=== PATIENT | female | born 1965 | race Caucasian/White ===

== ENCOUNTER 2024-07-23 17:40 | Inpatient (IN) | payer MEDICAID ==
[~2024-07-23] VITALS: Ht 162.6 cm; Wt 90.8 kg
--- NOTE | 2024-07-23 17:52 | ECG ---
[facility] Test Date: 2024-07-23 Test Time: 17:45:53 Pat Name: KEITH ESPINOZA Department: er Room: 0284T Gender: F Lab Nurse: gayatri : 1965 Requested By: EMERGENCY EMERGENCY Order Number: [id number] Reading MD: Reinier Rodriguez Measurements Intervals [place] Rate: 91 P: 49 OK: 150 QRS: 64 QRSD: 88 T: 48 QT: 360 QTc: 443 Interpretive Statements Sinus rhythm Electronically Signed On 07-27-2024 10:35:13 PST by Reinier Rodriguez Please click the below link to view image of tracing.
--- NOTE | 2024-07-23 18:01 | ED.PDOC ---
HPI Comments 59 y.o female with PMHx of CVA, diverticulitis, kidney stones, TBI, presents to the ED via EMS for a chief complaint of substernal chest pain radiating to her back associated with a headache that presented 2-3 days ago. Patient describes chest pain as a tightness sensation and head pain as a tingling sensation. Patient denies any SOB, cough, fever, chills. She does mention nausea, vomiting and chills last night but since has subsided. Time Seen by MD: 17:51 Primary Care Provider: UNSURE Reviewed Notes: Nurses Notes, Fancy Packer Notes, Medications, Allergies Allergies: Coded Allergies: Penicillins (Unverified Allergy, Unknown, 03/30/15) Information Source: Patient, Emergency Med Personnel Mode of Arrival: EMS Severity: Moderate Timing: Days Duration: Since onset Location: Substernal Radiation: Back Quality: Tightness Onset: At Rest Cardiac Risk Factors: HTN PE Risk Factors: None History of: None Modifying Factors: Nothing Associated Signs and Symptoms: Back Pain Past Medical History PAST MEDICAL HISTORY: CVA, HTN, Kidney Stones Past Medical History (Other): diverticulitis, TBI Surgical History (Other): kidney stone removal 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 History Family History Family History: Family hx of heart radha Social History Smoker: Non-Smoker Alcohol: Denies ETOH Use Drugs: Denies Drug Use Lives In: Home Constitutional: denies: chills, diaphoresis, fatigue, fever, malaise, sweats, weakness, others EENTM: denies: blurred vision, double vision, ear bleeding, ear discharge, ear drainage, ear pain, ear ringing, eye pain, eye redness, hearing loss, mouth pain, mouth swelling, nasal discharge, nose bleeding, nose congestion, nose pain, photophobia, tearing, throat pain, throat swelling, voice changes, others Respiratory: denies: cough, hemoptysis, orthopnea, SOB at rest, shortness of breath, SOB with excertion, stridor, wheezing, others Cardiovascular: reports: chest pain; denies: dizzy spells, diaphoresis, Dyspnea on exertion, edema, irregular heart beat, left arm pain, lightheadedness, palpitations, PND, syncope, others Gastrointestinal: denies: abdomen distended, abdominal pain, blood streaked bowels, constipated, diarrhea, dysphagia, difficulty swallowing, hematemesis, melena, nausea, poor appetite, poor fluid intake, rectal bleeding, rectal pain, vomiting, others Genitourinary: denies: abnormal vagina bleeding, burning, dyspareunia, dysuria, flank pain, frequency, hematuria, incontinence, pain, , vagina discharge, urgency, others Neurological: reports: headache; denies: dizziness, fainting, left sided numbness, left sided weakness, numbness, paresthesia, pre-existing deficit, right sided numbness, right sided weakness, seizure, speech problems, tingling, tremors, weakness, others Musculoskeletal: reports: back pain; denies: gout, joint pain, joint swelling, muscle pain, muscle stiffness, neck pain, others Integumetry: denies: bruises, change in color, change in hair/nails, dryness, laceration, lesions, lumps, rash, wounds, others Allergic/Immunocompromised: denies: Difficulty Healing, Frequent Infections, Hives, Itching, others Hematologic/Lymphatic: denies: anemia, blood clots, easy bleeding, easy bruising, swollen glands, others Endocrine: denies: excessive hunger, excessive sweating, excessive thirst, excessive urination, flushing, intolerance to cold, intolerance to heat, unexplained weight gain, unexplained weight loss, others Psychiatric: denies: anxiety, bipolar disorder, depression, hopeless, panic disorder, schizophrenia, sleepless, suicidal, others All Other Systems: Reviewed and Negative Physical Exam General Appearance: Moderate Distress HEENT: Normal ENT Inspection, Pharynx Normal, TMs Normal Neck: Full Range of Motion, Non-Tender, Normal, Normal Inspection Respiratory: Chest Non-Tender, Lungs Clear, No Accessory Muscle Use, No Respiratory Distress, Normal Breath Sounds Cardiovascular: No Edema, No JVD, No Murmur, No Gallop, Normal Peripheral Pulses, Regular Rate/Rhythm Breast Exam: Deferred Gastrointestinal: No Organomegaly, Non Tender, No Pulsatile Mass, Normal Bowel Sounds, Soft Genitalia: Deferred Pelvic: Deferred Rectal: Deferred Extremities: No calf tenderness, Normal capillary refill, Normal inspection, Normal range of motion, Non-tender, No pedal edema Musculoskeletal : Apperance: Normal Neurologic: Alert, manager ent II-XII nml as Tested, Motor Weakness, Normal Affect, Normal Mood, No Sensory Deficits Cerebellar Function: Normal Reflexes: Normal Skin: Dry, Normal Color, Warm Lymphatic: No Adenopathy EKG EKG : Pulse Rate (adult): 91 Cardiac Rhythm: NSR Was a procedure done? Was a procedure done?: No CP Differential Dx Differential Diagnosis: N/A Differential Diagnosis: N/A Differential Diagnosis: Angina, Chest Wall Pain, Cholelithiasis, Costochondritis, Esophageal reflux/spasm, Gastritis, Myocardial Infarction, Pericarditis X-Ray, Labs, Meds, VS Vital Signs Date Time Temp Pulse Resp B/P (MAP) Pulse Ox O2 Delivery O2 Flow Rate FiO2 07/23/24 19:02 91 07/23/24 18:01 91 07/23/24 17:45 91 07/23/24 17:45 98.5 94 14 177/109 (131) 95 Lab Test 07/23/24 18:55 07/23/24 17:55 Range/Units Troponin I High Sensitivity Pending 3 L </=34 ng/L White Blood Count 6.5 4.4-10.8 10^3/uL Red Blood Count 5.26 H 4.0-5.20 10^6/uL Hemoglobin 14.9 12.2-16.2 g/dL Hematocrit 44.7 36.0-46.0 % Mean Corpuscular Volume 85.1 80.0-100.0 fL Mean Corpuscular Hemoglobin 28.3 28.0-32.0 pg Mean Corpuscular Hemoglobin Concent 33.3 32.0-36.0 g/dL Red Cell Distribution Width 14.1 11.8-14.3 % Platelet Count 240 140-450 10^3/uL Mean Platelet Volume 6.8 L 6.9-10.8 fL Neutrophils (%) (Auto) 48.6 37.0-80.0 % Lymphocytes (%) (Auto) 38.7 10.0-50.0 % Monocytes (%) (Auto) 8.4 0.0-12.0 % Eosinophils (%) (Auto) 3.2 0.0-7.0 % Basophils (%) (Auto) 1.1 0.0-2.0 % Neutrophils # (Auto) 3.2 1.6-8.6 10 ^3/uL Lymphocytes # (Auto) 2.5 0.4-5.4 10 ^3/uL Monocytes # (Auto) 0.5 0-1.3 10 ^3/uL Eosinophils # (Auto) 0.2 0-0.8 10 ^3/uL Basophils # (Auto) 0.1 0-0.2 10 ^3/uL Nucleated Red Blood Cells 0.1 % Sodium Level 142 136-145 mmol/L Potassium Level 4.0 3.5-5.1 mmol/L Chloride Level 106 98-107 mmol/L Carbon Dioxide Level 26 20-31 mmol/L Anion Gap 10 5-15 Blood Urea Nitrogen 22 9-23 mg/dL Creatinine 1.04 H 0.550-1.02 mg/dL Glomerular Filtration Rate Calc 62 >90 mL/min BUN/Creatinine Ratio 21.2 H 10.0-20.0 Serum Glucose 114 H 74-106 mg/dL Calcium Level 10.1 8.7-10.4 mg/dL Magnesium Level 2.0 1.6-2.6 mg/dL The CBC and chemistry panel are within normal limits. The patient's 1st troponin level came back negative The chest x-ray is negative. The patient is being admitted to the hospitalist. The patient continues to have chest pain so the patient was being admitted this time. Images Reviewed?: Images reviewed and evaluated by me Time of 1ST Reevaluation: 17:56 Reevaluation 1ST: Unchanged Patient Education/Counseling: Diagnosis, Treatment, Prognosis Family Education/Counseling: No Family Present Departure 1 Departure Time of Disposition: 19:20 Impression: Primary Impression: Acute coronary syndrome Disposition: ADMITTED INPATIENT Admit to: [facility] Condition: Fair Critical Care Note Critical Care Time?: Yes (45 min-critical care time only) Stability Stability form required: Yes Unstable for transfer: Telemetry monitoring (Telemetry monitoring required), ED Physician Assesment (Clinical assesment) Heart Score Heart Score: Heart Score Response (Comments) Value History Moderate Suspicious 1 EKG Normal 0 Age 45-64 1 Risk Factors >3 or Hx ASHD 2 Troponin Normal limit 0 Total 4 I personally scribed for THO CRUZ MD ([email or web address]) on 07/23/24 at 18:01. E lectronically submitted by Brittany Ivan ([facility]). THO CRUZ MD Jul 23, 2024 18:01
[2024-07-23 18:22] LABS: Basophils # (auto) 0.1 10 ^3/uL (0-0.2); Basophils % (auto) 1.1 % (0.0-2.0); Eosinophils # (auto) 0.2 10 ^3/uL (0-0.8); Eosinophils % (auto) 3.2 % (0.0-7.0); Hematocrit 44.7 % (36.0-46.0); Hemoglobin 14.9 g/dL (12.2-16.2); Lymphocytes # (auto) 2.5 10 ^3/uL (0.4-5.4); Lymphocytes % (auto) 38.7 % (10.0-50.0); Mean Corpuscular Hemoglobin 28.3 pg (28.0-32.0); Mean Corpuscular Hgb Conc. 33.3 g/dL (32.0-36.0); Mean Corpuscular Volume 85.1 fL (80.0-100.0); Monocytes # (auto) 0.5 10 ^3/uL (0-1.3); Monocytes % (auto) 8.4 % (0.0-12.0); Neutrophils # (auto) 3.2 10 ^3/uL (1.6-8.6); Neutrophils % (auto) 48.6 % (37.0-80.0); Nucleated Red Blood Cells % 0.1 %; Platelet Count (auto) 240 10^3/uL (140-450); Red Blood Cells 5.26 10^6/uL (4.0-5.20); Red Cell Distribution Width 14.1 % (11.8-14.3); White Blood Cell 6.5 10^3/uL (4.4-10.8)
[2024-07-23 18:29] LABS: Chloride 106 mmol/L (98-107); Sodium 142 mmol/L (136-145)
[2024-07-23 18:30] LABS: Anion Gap 10 (5-15); Calcium 10.1 mg/dL (8.7-10.4); Carbon Dioxide 26 mmol/L (20-31)
[2024-07-23 18:35] LABS: BUN/Creatinine Ratio 21.2 (10.0-20.0); Blood Urea Nitrogen 22 mg/dL (9-23)
[2024-07-23 18:36] LABS: Glucose 114 mg/dL (74-106)
--- NOTE | 2024-07-23 18:47 | DVH ---
CHEST RADIOGRAPH Indication: cp Technique: Single frontal view of the chest was obtained COMPARISON: None FINDINGS: Lines and Tubes: None Lungs: Clear Pleura: No effusion. No pneumothorax. Cardiomediastinal contours: Unremarkable Bones: Unremarkable IMPRESSION: 1. No acute disease.
[2024-07-23 20:31] VITALS: PULSE 96; RESP 16; O2SAT 98
[2024-07-23] MEDS: ONDANSETRON HCL 4 MG/2 ML VIAL IV ONE (20:39)
[2024-07-23] MEDS: MORPHINE SULFATE 4 MG/ML SYR/VIAL IV ONE (20:39)
[2024-07-24] MEDS: MORPHINE SULFATE INJ 2 MG/ml SYRG IV ONE (06:11)
[2024-07-24] MEDS: ASPirin 81 mg TAB PO ONE (06:12)
[2024-07-24 06:47] LABS: Alkaline Phosphatase 111 U/L (46-116); Anion Gap 8 (5-15); BUN/Creatinine Ratio 20.9 (10.0-20.0); Calcium 10.1 mg/dL (8.7-10.4); Carbon Dioxide 27 mmol/L (20-31); Chloride 105 mmol/L (98-107); Potassium 4.4 mmol/L (3.5-5.1); Sodium 140 mmol/L (136-145); Total Protein 7.5 g/dL (5.7-8.2)
[2024-07-24 07:04] LABS: Alanine Aminotransferase 1220 U/L (7-40); Albumin 4.9 g/dL (3.2-4.8); Aspartate Aminotransferase 2063 U/L (13-40); Bilirubin, Total 1.2 mg/dL (0.2-1.0); Blood Urea Nitrogen 28 mg/dL (9-23); Glucose 113 mg/dL (74-106)
[2024-07-24] MEDS ORDERED: HYDR25TA87 (10:39)
[2024-07-24] MEDS ORDERED: LISI20TA56 PO (10:39)
[2024-07-24] MEDS ORDERED: CARV6.2551 PO (10:39)
[2024-07-24] MEDS ORDERED: DOCUSATE SOD 100 MG CAP PO PRN (10:45)
[2024-07-24] MEDS ORDERED: NITROGLYCERIN 0.4 MG SL TAB SL PRN (10:45)
[2024-07-24] MEDS ORDERED: ACETAMINOPHEN 325 MG TAB PO PRN (10:45)
--- NOTE | 2024-07-24 10:46 | DVHHP2 ---
History of Present Illness Reason for Visit: Chest pain History of Present Illness Iliana Moeller is a 59-year-old female with past medical history of hypertension, CVA, TBI, diverticulosis, and kidney stones, who came in due to chest pain. Patient states that she has been experiencing intermittent chest pain for the last couple of months. She states it worsened yesterday prompting her to come to the ER. Patient states that when her chest pain worsens it radiates to her back and causes her jaw to go numb. Patient also states that the pain is at rest and with activity. 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) GI: Diverticulosis Renal/: Other (H/O kidney stones) Past Surgical History: Appendectomy, Cholecystectomy, Other (Kidney stone removal, colon surgery for diverticulitis), Tubal Ligation Smoke: No ALCOHOL: none Drugs: None Lives: with Family Domestic Violence: Neg Review of Systems Constitutional: No: Fever, Chills, Sweats, Weakness, Malaise, Other Eyes: No: Pain, Vision change, Conjunctivae inflammation, Eyelid inflammation, Other, Redness ENT: No: Ear pain, Ear discharge, Nose pain, Nose discharge, Nose congestion, Mouth pain, Mouth swelling, Throat pain, Throat swelling, Other Respiratory: No: Cough, Dry, Shortness of breath, SOB with excertion, Wheezing, Hemoptysis, Pleuritic Pain, Sputum, Wheezing, Other Cardiovascular: Chest Pain, Palpitations; No: Orthopnea, Paroxysmal Noc. Dyspnea, Edema, Lt Headedness, Other Gastrointestinal: No: Nausea, Vomiting, Abdominal Pain, Diarrhea, Constipation, Melena, Hematochezia, Other Genitourinary: No Dysuria, No Frequency, No Incontinence, No Hematuria, No Retention, No Other Musculoskeletal: No: other, neck pain, shoulder pain, arm pain, back pain, hand pain, leg pain, foot pain Skin: No: Rash, Lesions, Jaundice, Bruising, Other Neurological: No: Weakness, Numbness, Incoordination, Change in speech, Confusion, Seizures, Other Allergies: Coded Allergies: Penicillins (Unverified Allergy, Unknown, 03/30/15) Medications Current Medications Medications Dose Ordered Sig/Tre Route Start Time Stop Time Status Last Admin Dose Admin Sodium Chloride 10 ml Q8HR IV 07/24/24 14:00 UNV Acetaminophen/ Hydrocodone Bitart 1 tab Q4HP PRN PO 07/24/24 10:45 UNV Ondansetron HCl 4 mg Q4HP PRN IV 07/24/24 10:45 UNV Docusate Sodium 100 mg BIDPRN PRN PO 07/24/24 10:45 UNV Acetaminophen 650 mg Q6HP PRN PO 07/24/24 10:45 UNV Nitroglycerin 0.4 mg Q5MINP PRN SL 07/24/24 10:45 UNV Morphine Sulfate 2 mg Q30M PRN IV 07/24/24 10:45 UNV Exam Vital Signs Vital Signs Date Time Temp Pulse Resp B/P (MAP) Pulse Ox O2 Delivery O2 Flow Rate FiO2 07/24/24 10:13 97.9 88 17 113/83 (93) 100 97.9 07/24/24 07:17 Room Air 07/23/24 20:31 0 21 General Appearance: Alert, Oriented X3, Cooperative, moderate distress HEENT: Atraumatic, PERRLA Respiratory: Clear to auscultation, Normal air movement Cardiovascular: Regular rate, Normal S1, Normal S2, No murmurs Abdominal: Normal bowel sounds, Soft, No tenderness, No hepatospenomegaly Extremities: No clubbing, No cyanosis, No edema, Normal pulses, No tenderness/swelling Skin: No rashes, No breakdown, No significant lesion Neuro: Normal gait, Normal speech, Strength at 5/5 X4 ext Psych/Mental Status: Mood NL Labs/Xrays Labs Test 07/24/24 06:06 07/23/24 17:55 Range/Units Sodium Level 140 136-145 mmol/L Potassium Level 4.4 3.5-5.1 mmol/L Chloride Level 105 98-107 mmol/L Carbon Dioxide Level 27 20-31 mmol/L Anion Gap 8 5-15 Blood Urea Nitrogen 28 H 9-23 mg/dL Creatinine 1.34 H 0.550-1.02 mg/dL Glomerular Filtration Rate Calc 46 >90 mL/min BUN/Creatinine Ratio 20.9 H 10.0-20.0 Serum Glucose 113 H 74-106 mg/dL Calcium Level 10.1 8.7-10.4 mg/dL Total Bilirubin 1.2 H 0.2-1.0 mg/dL Aspartate Amino Transferase (AST) 2063 H 13-40 U/L Alanine Aminotransferase (ALT) 1220 H 7-40 U/L Alkaline Phosphatase 111 46-116 U/L Troponin I High Sensitivity < 3 L </=34 ng/L Total Protein 7.5 5.7-8.2 g/dL Albumin 4.9 H 3.2-4.8 g/dL White Blood Count 6.5 4.4-10.8 10^3/uL Red Blood Count 5.26 H 4.0-5.20 10^6/uL Hemoglobin 14.9 12.2-16.2 g/dL Hematocrit 44.7 36.0-46.0 % Mean Corpuscular Volume 85.1 80.0-100.0 fL Mean Corpuscular Hemoglobin 28.3 28.0-32.0 pg Mean Corpuscular Hemoglobin Concent 33.3 32.0-36.0 g/dL Red Cell Distribution Width 14.1 11.8-14.3 % Platelet Count 240 140-450 10^3/uL Mean Platelet Volume 6.8 L 6.9-10.8 fL Neutrophils (%) (Auto) 48.6 37.0-80.0 % Lymphocytes (%) (Auto) 38.7 10.0-50.0 % Monocytes (%) (Auto) 8.4 0.0-12.0 % Eosinophils (%) (Auto) 3.2 0.0-7.0 % Basophils (%) (Auto) 1.1 0.0-2.0 % Neutrophils # (Auto) 3.2 1.6-8.6 10 ^3/uL Lymphocytes # (Auto) 2.5 0.4-5.4 10 ^3/uL Monocytes # (Auto) 0.5 0-1.3 10 ^3/uL Eosinophils # (Auto) 0.2 0-0.8 10 ^3/uL Basophils # (Auto) 0.1 0-0.2 10 ^3/uL Nucleated Red Blood Cells 0.1 % Magnesium Level 2.0 1.6-2.6 mg/dL CHEST RADIOGRAPH FINDINGS: Lines and Tubes: None Lungs: Clear Pleura: No effusion. No pneumothorax. Cardiomediastinal contours: Unremarkable Bones: Unremarkable IMPRESSION: 1. No acute disease. Assessment/Plan Assessment/Plan Assessment: R/O Acute coronary syndrome, Transaminitis, Malnutrition, Hypertension, Plan: Admit to Tele, Cardiology consult, Liver ultrasound, ECHO, Home medications reconciled, Plan discussed with: Patient, Spouse My Orders Orders - ARIES BRYANT Procedure Category Date Status Time * Cardiology Consult CONS 07/24/24 Transmitted 10:35 Admit ADMIT 07/24/24 Transmitted 10:35 Code Status CODE 07/24/24 Transmitted 10:35 Sodium Chloride Lock PHA 07/24/24 Logged (Saline Lock Ns) 14:00 Hydrocodone-Acet PHA 07/24/24 Logged 5/325mg Tab (Gracey 10:45 Ondansetron Hcl PHA 07/24/24 Logged (Zofran) 10:45 Docusate Sodium PHA 07/24/24 Logged Capsule (Colace 10:45 Complete Blood Count LAB 07/25/24 Verified 04:00 Comprehensive LAB 07/25/24 Verified Metabolic Panel 04:00 Cardiac DIET 07/24/24 Transmitted Diet-2gna,Lofat,Lochol Lunch Echo 2d Mode Cardiac US 07/24/24 Logged DOP 10:35 Condition: Serious CORNELIUS 07/24/24 In Process 10:35 Acetaminophen Tablet PHA 07/24/24 Logged (Tylenol Tablet) 10:45 Nitroglycerin PHA 07/24/24 Logged Sublingual (Ntrostat 10:45 Morphine Sulfate PHA 07/24/24 Logged Injection 10:45 Stat Ekg For Chest CORNELIUS 07/24/24 In Process Pain 10:35 Notify Md Of Changes CORNELIUS 07/24/24 In Process From Base 10:35 Commanding Officer H[employer] For CORNELIUS 07/24/24 In Process 24 Hours 10:35 Emergency Dysrhythmia CORNELIUS 07/24/24 In Process Protocol 10:35 Rhythm Strips Once CORNELIUS 07/24/24 In Process Every Shift 10:35 Oxygen By Nasal RT 07/24/24 Transmitted Cannula 10:35 Hydralazine Hcl PHA 07/25/24 Verified Tablet (Apresoline 10:00 Lisinopril Tablet PHA 07/25/24 Verified (Zestril Tablet) 10:00 (Nf) Carvedilol PHA 07/24/24 Verified 22:00 Date of Service: Jul 24, 2024 Billing Provider: ARIES BRYANT Common Visit Codes: [id number] INP/OBS CARE (MOD) ARIES BRYANT Jul 24, 2024 10:46
--- NOTE | 2024-07-24 13:43 | ECG ---
[facility] Test Date: 2024-07-23 Test Time: 19:02:48 Pat Name: KEITH ESPINOZA Department: ER Room: 0284T Gender: F Birth Attendant: SAHIL : 1965 Requested By: ASHLEY SOSA Order Number: [id number] Reading MD: Reinier Rodriguez Measurements Intervals [place] Rate: 91 P: 72 [place]: 142 QRS: 55 QRSD: 91 T: 32 QT: 363 QTc: 447 Interpretive Statements Sinus rhythm Electronically Signed On 07-27-2024 10:35:35 PST by Reinier Rodriguez Please click the below link to view image of tracing.
[2024-07-24] MEDS: SODIUM CHLOR 0.9% PF (SALINE LOCK) 10ML VIAL/SYR IV SCH (15:00)
--- NOTE | 2024-07-24 15:33 | DVH ---
Ultrasound liver INDICATION: Transaminitis Technique: 2-D real-time ultrasound was performed with axial and sagittal images submitted for evalu ation. FINDINGS: The liver is enlarged measuring 19 cm and is increased in echogenicity. No focal hepatic ma ss. Gallbladder has been removed Common duct normal in size measuring 5 mm Right kidney 8.5 cm in length without mass stone or hydronephrosis there is an extrarenal pelvis. Lef t kidney 10.7 cm in length Pancreas obscured No free fluid. IMPRESSION: 1. Enlarged fatty liver. 2. No biliary dilatation. Gallbladder has been removed
[2024-07-24] MEDS: HYDROcodone-ACET 5/325MG TAB PO PRN (15:55)
[2024-07-24 17:00] VITALS: BP 124/87; PULSE 73; RESP 20; TEMP 97.4; O2SAT 95
[2024-07-24 17:45] VITALS: PULSE 89; RESP 17; O2SAT 96
[2024-07-24 20:00] VITALS: PULSE 81
[2024-07-24 20:20] LABS: Hepatitis B Surface Antigen Negative (Negative)
[2024-07-24 20:27] LABS: Hepatitis C Antibody Negative (Negative)
[2024-07-24] MEDS: CARVEDILOL 3.125 MG TAB PO SCH (20:31)
[2024-07-24 21:00] VITALS: BP 120/73; PULSE 67; RESP 18; TEMP 97.7; O2SAT 98
[2024-07-25] VITALS (7 sets, daily range): BP systolic 113–128; BP diastolic 68–80; PULSE 66–84; RESP 14–18; TEMP 97.6–98.9; O2SAT 94–96
--- NOTE | 2024-07-25 07:05 | DVHSR ---
APPROVED REPORT EXAM: Two-dimensional and M-mode echocardiogram with Doppler and color Doppler. Blood Pressure: 113/83 mmHg INDICATION LV function RISK FACTORS Height: 5'4", Weight: 185 DIMENSIONS LVDd4.5 (3.8-5.7cm)LA (2D)3.5 (1.9-4.0cm)Aortic Root3.1 (2.0-3.7cm) LVDs2.6 (2.5-4.0cm)LA (MM) (1.9-4.0cm)Aortic Cusp Exc1.9 (1.5-2.0cm) EF (%) 72.0 (55-70%)Rt. Atrium3.3 (1.9-4.0cm)Asc. Aorta3.9 cm IVSd0.9 (0.7-1.1cm)RV (D) (1.8-2.4cm) PWd1.0 (0.7-1.1cm) Mitral Valve MitralMitral Stenosis E/A ratio0.02D MVAcm2 Aortic Valve Aortic ValveAortic Stenosis V11.11m/Purvi Mean GR.6mmHg V21.59m/Purvi Peak GR.10mmHg LVOT Diameter2.0 (1.8-2.4cm)Doppler AVA2.19cm2 Pulmonic Valve V20.87m/s Tricuspid Valve TR Velocity2.41m/s [id number] Conclusion Left ventricle: Left ventricle was normal sized with normal systolic function. LVEF was 66%. There was no gross wall motion abnormality. Right ventricle was normal sized with normal systolic function. Both atria were normal sized. Aortic valve is trileaflet. There was no aortic insufficiency/stenosis. There was trivial mitral/tr icuspid regurgitation. There was no pulmonary valve insufficiency. Right ventricular systolic pressure was assessed at 28 mm Hg (normal). There was no pericardial effu dany.
[2024-07-25 07:14] LABS: Albumin 3.9 g/dL (3.2-4.8); Alkaline Phosphatase 113 U/L (46-116); Anion Gap 8 (5-15); BUN/Creatinine Ratio 25.3 (10.0-20.0); Calcium 9.4 mg/dL (8.7-10.4); Carbon Dioxide 25 mmol/L (20-31); Chloride 106 mmol/L (98-107); Potassium 4.1 mmol/L (3.5-5.1); Sodium 139 mmol/L (136-145)
[2024-07-25 07:15] LABS: Total Protein 5.9 g/dL (5.7-8.2)
[2024-07-25 07:21] LABS: Alanine Aminotransferase 758 U/L (7-40); Aspartate Aminotransferase 528 U/L (13-40); Bilirubin, Total 1.2 mg/dL (0.2-1.0); Blood Urea Nitrogen 24 mg/dL (9-23); Glucose 107 mg/dL (74-106)
[2024-07-25 07:27] LABS: Basophils # (auto) 0 10 ^3/uL (0-0.2); Basophils % (auto) 1.2 % (0.0-2.0); Eosinophils # (auto) 0.3 10 ^3/uL (0-0.8); Eosinophils % (auto) 7.9 % (0.0-7.0); Hematocrit 41.7 % (36.0-46.0); Hemoglobin 13.7 g/dL (12.2-16.2); Lymphocytes # (auto) 1.4 10 ^3/uL (0.4-5.4); Lymphocytes % (auto) 38.4 % (10.0-50.0); Mean Corpuscular Hemoglobin 28.4 pg (28.0-32.0); Mean Corpuscular Volume 86.1 fL (80.0-100.0); Monocytes # (auto) 0.3 10 ^3/uL (0-1.3); Monocytes % (auto) 7.3 % (0.0-12.0); Neutrophils # (auto) 1.6 10 ^3/uL (1.6-8.6); Neutrophils % (auto) 45.2 % (37.0-80.0); Nucleated Red Blood Cells % 0.2 %; Platelet Count (auto) 181 10^3/uL (140-450); Red Blood Cells 4.84 10^6/uL (4.0-5.20); White Blood Cell 3.6 10^3/uL (4.4-10.8)
--- NOTE | 2024-07-25 08:22 | DVHINCON2 ---
Date of service: Jul 25, 2024 History of Present Illness HPI Patient is a 59-year-old female who presents to the hospital with palpitation/atypical chest discomfort and headaches. She has been experiencing occasional palpitation which increased. She mentions that her blood pressure was over 200 at home and she decided come to the hospital. She has not seen chronic disease manager is before. Cardiology was involved for cardiac aspects for care. Denies loss of consciousness. Denies shortness of breath. Home Meds Reported Medications Hydralazine HCl (Hydralazine HCl) 25 Mg Tab, 1 07/24/24 Lisinopril (Lisinopril) 20 Mg Tab, 1 TAB PO DAILY 07/24/24 Carvedilol (Carvedilol) 6.25 Mg Tab, 1 TAB PO BID 07/24/24 Past Medical History Others Past Medical history includes old history of CVA, diverticulosis, kidney stones, old history of traumatic brain injury, hypertension, status post appendectomy/cholecystectomy/tubal ligation. Has had colectomy because of diverticulosis before. Denies smoking and alcohol abuse Family History: No pertinent Hx Smoker: No Hx (Negative) Alocohol: None Drugs: None Lives with: With family Review of Systems Constitutional: No symptom reported Ears, Nose, & Throat: No symptom reported Cardiovascular: Palpitations Gastrointestinal: Abdominal Pain All Other Systems Fourteen point review of system was performed. Relevant findings as per above and as per HPI. Otherwise negative. H&P Exam Vital Signs Vital Signs Date Time Temp Pulse Resp B/P (MAP) Pulse Ox O2 Delivery O2 Flow Rate FiO2 07/25/24 05:00 97.6 67 18 123/74 (90) 96 97.6 07/24/24 20:00 Room Air* 0 21 General Appeara: Well developed Head Exam: Normal inspection Neck Exam: Normal inspection Eye Exam: bilateral eye PERRL Nasal Exam: Normal inspection Mouth: Normal Inspection Pulmonary/Respiratory: Normal inspection, Lungs clear Cardiovascular/Chest: Normal inspection, Regular rate Peripheral Pulses: 2+ carotid (R), 2+ carotid (L), 2+ femoral (R), 2+ femoral (L), 2+ dorsalis pedis (R), 2+ dorsalis pedis (L), 2+ Radial (R), 2+ Radial (L) Abdominal Exam: Normal bowel sounds, Soft, Other (Mild mid abdominal tenderness. There was no rebound tenderness.) Neuro/Mental St: Alert, Oriented Appearance: Appropriate appearance Eye contact/ Speech: Cooperative, Good eye contact Labs/Xrays Labs Test 07/25/24 05:26 07/24/24 06:06 07/23/24 17:55 Range/Units White Blood Count 3.6 #L 4.4-10.8 10^3/uL Red Blood Count 4.84 4.0-5.20 10^6/uL Hemoglobin 13.7 12.2-16.2 g/dL Hematocrit 41.7 36.0-46.0 % Mean Corpuscular Volume 86.1 80.0-100.0 fL Mean Corpuscular Hemoglobin 28.4 28.0-32.0 pg Mean Corpuscular Hemoglobin Concent 33.0 32.0-36.0 g/dL Red Cell Distribution Width 14.0 11.8-14.3 % Platelet Count 181 140-450 10^3/uL Mean Platelet Volume 7.1 6.9-10.8 fL Neutrophils (%) (Auto) 45.2 37.0-80.0 % Lymphocytes (%) (Auto) 38.4 10.0-50.0 % Monocytes (%) (Auto) 7.3 0.0-12.0 % Eosinophils (%) (Auto) 7.9 H 0.0-7.0 % Basophils (%) (Auto) 1.2 0.0-2.0 % Neutrophils # (Auto) 1.6 1.6-8.6 10 ^3/uL Lymphocytes # (Auto) 1.4 0.4-5.4 10 ^3/uL Monocytes # (Auto) 0.3 0-1.3 10 ^3/uL Eosinophils # (Auto) 0.3 0-0.8 10 ^3/uL Basophils # (Auto) 0 0-0.2 10 ^3/uL Nucleated Red Blood Cells 0.2 % Sodium Level 139 136-145 mmol/L Potassium Level 4.1 3.5-5.1 mmol/L Chloride Level 106 98-107 mmol/L Carbon Dioxide Level 25 20-31 mmol/L Anion Gap 8 5-15 Blood Urea Nitrogen 24 H 9-23 mg/dL Creatinine 0.95 0.550-1.02 mg/dL Glomerular Filtration Rate Calc 69 >90 mL/min BUN/Creatinine Ratio 25.3 H 10.0-20.0 Serum Glucose 107 H 74-106 mg/dL Calcium Level 9.4 8.7-10.4 mg/dL Total Bilirubin 1.2 H 0.2-1.0 mg/dL Aspartate Amino Transferase (AST) 528 H 13-40 U/L Alanine Aminotransferase (ALT) 758 H 7-40 U/L Alkaline Phosphatase 113 46-116 U/L Total Protein 5.9 5.7-8.2 g/dL Albumin 3.9 3.2-4.8 g/dL Troponin I High Sensitivity < 3 L </=34 ng/L Hepatitis B Surface Antigen Negative Negative Hepatitis C Antibody Negative Negative Magnesium Level 2.0 1.6-2.6 mg/dL Assessment/Plan Plan Patient is a 59-year-old female who presents to the hospital with palpitation/atypical chest discomfort and headaches. She has been experiencing occasional palpitation which increased. She mentions that her blood pressure was over 200 at home and she decided come to the hospital. She has not seen chronic disease manager is before. Cardiology was involved for cardiac aspects for care. Denies loss of consciousness. Denies shortness of breath. Not in acute distress. No JVD. Mucosa is pink and wet. No carotid bruit. Lungs are clear to auscultation. Not using accessory muscles of breathing. Cardiac: Regular, no thrills/gallop. Abdomen is soft. Bowel sound is positive. Mild mid abdominal tenderness is elicited. There was no rebound tenderness. Extremities do not reveal edema. Dorsalis pedis was 2+ bilateral. Past Medical history includes old history of CVA, diverticulosis, kidney stones, old history of traumatic brain injury, hypertension, status post appendectomy/cholecystectomy/tubal ligation. Has had colectomy because of diverticulosis before. Denies smoking and alcohol abuse. Creatinine: 1.04 - 1.34 Potassium: 4.0 - 4.4 Troponin (high sensitive): 3 - 3 - <3 AST/ALT: 2063/1220 Total bilirubin: 1.2 Chest x-ray revealed: IMPRESSION: 1. No acute disease. Abdominal ultrasound revealed: IMPRESSION: 1. Enlarged fatty liver. 2. No biliary dilatation. Gallbladder has been removed Telemetry reveals sinus rhythm Echocardiogram reported: Left ventricle: Left ventricle was normal sized with normal systolic function. LVEF was 66%. There was no gross wall motion abnormality. Right ventricle was normal sized with normal systolic function. Both atria were normal sized. Aortic valve is trileaflet. There was no aortic insufficiency/stenosis. There was trivial mitral/tricuspid regurgitation. There was no pulmonary valve insufficiency. Right ventricular systolic pressure was assessed at 28 mm Hg (normal). There was no pericardial effusion. Patient is a 59-year-old female who presented with palpitation and atypical chest discomfort. Reportedly patient's blood pressure was above 200 at home. Serial high sensitive troponin has been negative. Echocardiogram was done revealing. Acute coronary syndrome is not considered at this point. [place] is ruled out. Patient was found to have significantly elevated liver enzymes. Hypertensive urgency/emergency Palpitations Old history of CVA Abnormal liver enzymes Diverticulosis, history of Cardiac suggestions for management: Manage on telemetry Follow up electrolytes and kidney function test and Correct abnormalities Follow up vital signs and treat hypertension GI consultation for abnormal liver enzymes is suggested Stress test/long-term monitor can be arranged as outpatient Thank you for consultation Further evaluation and management depends on the above and clinical course A total of 75 minutes was spent reviewing the patient record, examining the patient, making a diagnostic and therapeutic plan, discussing this plan with medical personnel, following up on diagnostic studies and following the patient for clinical stability excluding any and all procedures. At least 50% of this time was spent in direct, [id number] contact. Thank you for allowing me to participate in this patient's care. Further recommendations will depend on patient's clinical course. Please do not hesitate to contact me if you have any questions or concerns. This medical document was created using electronic medical record system with [employer] computerized dictation system. Although this document has been carefully reviewed, there may still be some phonetic and typographical errors. These areas are purely typographical due to the imperfection of the software programs, and do not reflect any compromise in the patient's medical care. Plan discussed with: Patient, Other (nurse) LIZBETH AVELAR MD Jul 25, 2024 08:22
[2024-07-25] MEDS: hydrALAZINE HCL 25 MG TAB PO SCH (10:45)
[2024-07-25] MEDS: LISINOPRIL 20 MG TAB PO SCH (10:45)
--- NOTE | 2024-07-25 12:46 | DVHPN2 ---
Subjective 59-year-old female with a history of hypertension, traumatic brain injury, CVA in the past, comes with chief complaint of chest pain and headache and hypertensive urgency Changes from previous H/P or p: Changes Eyes: No Pain, No Vision change, No Conjunctivae inflammation, No Eyelid inflammation, No Other, No Redness ENT: No Ear pain, No Ear discharge, No Nose pain, No Nose discharge, No Nose congestion, No Mouth pain, No Mouth swelling, No Throat pain, No Throat swelling, No Other Cardiovascular: Chest Pain, Palpitations; No Orthopnea, No Paroxysmal Noc. Dyspnea, No Edema, No Lt Headedness, No Other Respiratory: No Cough, No Dry, No Shortness of breath, No SOB with excertion, No Wheezing, No Hemoptysis, No Pleuritic Pain, No Sputum, No Other Gastrointestinal: No Nausea, No Vomiting, No Abdominal Pain, No Diarrhea, No Constipation, No Melena, No Hematochezia, No Other Genitourinary: No Dysuria, No Frequency, No Incontinence, No Hematuria, No Retention, No Other Musculoskeletal: No other, No neck pain, No shoulder pain, No arm pain, No back pain, No hand pain, No leg pain, No foot pain Skin: No Rash, No Lesions, No Jaundice, No Bruising, No Other Objective Vitals Vital Signs Date Time Temp Pulse Resp B/P (MAP) Pulse Ox O2 Delivery O2 Flow Rate FiO2 07/25/24 10:46 76 119/89 07/25/24 08:33 98.0 16 96 98.0 07/24/24 20:00 Room Air* 0 21 Intake/Output Intake and Output 07/25/24 07:00 Intake Total 400 ml Balance 400 ml Intake Oral 400 ml # Voids 3 General Appearance: Alert, Oriented X3, Cooperative Lungs: Clear to auscultation, Normal air movement Cardiovascular: Regular rate, Normal S1, Normal S2 Abdomen: Normal bowel sounds, Soft, No tenderness Extremities: No edema Medications Current Medications Medications Dose Ordered Sig/Tre Route Start Time Stop Time Status Last Admin Dose Admin Sodium Chloride 10 ml Q8HR IV 07/24/24 14:00 07/25/24 06:05 10 ML Acetaminophen/ Hydrocodone Bitart 1 tab Q4HP PRN PO 07/24/24 10:45 07/25/24 10:47 1 TAB Ondansetron HCl 4 mg Q4HP PRN IV 07/24/24 10:45 Docusate Sodium 100 mg BIDPRN PRN PO 07/24/24 10:45 Acetaminophen 650 mg Q6HP PRN PO 07/24/24 10:45 Nitroglycerin 0.4 mg Q5MINP PRN SL 07/24/24 10:45 Morphine Sulfate 2 mg Q30M PRN IV 07/24/24 10:45 Hydralazine HCl 25 mg DAILY PO 07/25/24 10:00 07/25/24 10:45 25 MG Lisinopril 20 mg DAILY PO 07/25/24 10:00 07/25/24 10:45 20 MG Carvedilol 6.25 mg BID PO 07/24/24 22:00 07/25/24 10:46 6.25 MG Laboratory Results Laboratory Tests 07/25/24 05:26 Chemistry Test 07/25/24 05:26 Albumin 3.9 g/dL (3.2-4.8) Calcium Level 9.4 mg/dL (8.7-10.4) Total Protein 5.9 g/dL (5.7-8.2) LFT Test 07/25/24 05:26 Alanine Aminotransferase (ALT) 758 U/L (7-40) H Alkaline Phosphatase 113 U/L (46-116) Aspartate Amino Transferase (AST) 528 U/L (13-40) H Total Bilirubin 1.2 mg/dL (0.2-1.0) H Assessment/Plan Assessment/Plan Chest pain Headache Hypertensive urgency Uncontrolled hypertension Old CVA History of traumatic brain injury Hypertension Transaminitis Fatty liver History of left kidney mass per patient Plan Hepatitis panel GI consult Monitor the liver functions Discontinue [place] Order morphine p.r.n. for the headache and pain CT scan of the head Neurology consult Full code Discussed with the patient and at the bedside Advance directives discussed for 15 minutes Get the report of the MRI of the kidneys that the patient said she had it done about 10 days ago Plan discussed with: Patient, Spouse Date of Service: Jul 25, 2024 Billing Provider: CHRISTIANO BONDS MD Common Visit Codes: [id number] INP/OBS CARE(HIGH) Secondary Visit Codes: [id number] CARE PLAN 30 MINUTES CHRISTIANO BONDS MD Jul 25, 2024 12:46
[2024-07-25] MEDS: ONDANSETRON HCL 4 MG/2 ML VIAL IV PRN (14:01)
--- NOTE | 2024-07-25 15:07 | DVH ---
EXAM: CT HEAD WITHOUT CONTRAST INDICATION: headache TECHNIQUE: CT of the head without intravenous contrast. Radiation Dose : 1. Head: CT Dose: CTDI volume is 58 mGy. Dose-length product is 1027 mGy*cm The dose indicators for CT are the volume Computed Tomography (CT) Dose Index (CTDIvol) and the Dose Length Product (DLP), and are measured in units of mGy and mGy-cm, respectively. These indicators are not patient dose, but values generated from the CT scanner acquisition factors. The report includes radiation exposure data for exposures received during this examination. COMPARISON: None FINDINGS: There is no evidence of acute intracranial hemorrhage, extra-axial collection, mass effect, midline s hift, herniation or hydrocephalus. The ventricles, sulci and cisterns are age appropriate. The hogan-white differentiation is intact. Patchy periventricular and subcortical white matter hypoattenuation is nonspecific but may be related to small vessel ischemic disease. The visualized paranasal sinuses and mastoid air cells are clear. The surrounding soft tissues and osseous structures are unremarkable. IMPRESSION: No acute intracranial abnormality. Radiation optimization: All CT scans at this facility use at least one of these dose optimization bria hniques: automated exposure control mA and/or kV adjustment per patient size (includes targeted exam s where dose is matched to clinical indication) or iterative reconstruction.
[2024-07-25] MEDS: SODIUM CHLORIDE 0.9% 1,000 ML IV ONE (16:45)
[2024-07-25] MEDS: MORPHINE SULFATE INJ 2 MG/ml SYRG IV PRN (17:55)
[2024-07-26 05:00] VITALS: BP 118/76; PULSE 58; RESP 17; TEMP 98.1; O2SAT 95
--- NOTE | 2024-07-26 06:40 | DVHPN2 ---
Progress Note - Dictate Date Seen: Jul 26, 2024 Medical Necessity Reason Pt with a Central, PICC or Fol: No vital signs Vital Sign Date Time Temp Pulse Resp B/P (MAP) Pulse Ox O2 Delivery O2 Flow Rate FiO2 07/26/24 05:00 98.1 58 17 118/76 (90) 95 98.1 07/25/24 20:00 Room Air* 0 21 Total Intake and Output 07/25/24 07/25/24 07/26/24 15:00 23:00 07:00 Intake Total 950 ml 800 ml Balance 950 ml 800 ml medications Current Medications Medications Dose Ordered Sig/Tre Route Start Time Stop Time Status Last Admin Dose Admin Sodium Chloride 10 ml Q8HR IV 07/24/24 14:00 07/26/24 05:34 10 ML Ondansetron HCl 4 mg Q4HP PRN IV 07/24/24 10:45 07/25/24 22:24 4 MG Docusate Sodium 100 mg BIDPRN PRN PO 07/24/24 10:45 Acetaminophen 650 mg Q6HP PRN PO 07/24/24 10:45 Nitroglycerin 0.4 mg Q5MINP PRN SL 07/24/24 10:45 Morphine Sulfate 2 mg Q30M PRN IV 07/24/24 10:45 Hydralazine HCl 25 mg DAILY PO 07/25/24 10:00 07/25/24 10:45 25 MG Lisinopril 20 mg DAILY PO 07/25/24 10:00 07/25/24 10:45 20 MG Carvedilol 6.25 mg BID PO 07/24/24 22:00 07/25/24 22:07 6.25 MG Morphine Sulfate 2 mg Q4HPRN PRN IV 07/25/24 12:45 07/26/24 04:10 2 MG laboratory and microbiology Laboratory Tests 07/25/24 05:26 Test 07/26/24 05:30 Range/Units Serum Glucose Pending Assessment/Plan Patient is a 59-year-old female who presents to the hospital with palpitation/atypical chest discomfort and headaches. She has been experiencing occasional palpitation which increased. She mentions that her blood pressure was over 200 at home and she decided come to the hospital. She has not seen supervisory lifeguard is before. Cardiology was involved for cardiac aspects for care. Denies loss of consciousness. Denies shortness of breath. Not in acute distress. No JVD. Mucosa is pink and wet. No carotid bruit. Lungs are clear to auscultation. Not using accessory muscles of breathing. Cardiac: Regular, no thrills/gallop. Abdomen is soft. Bowel sound is positive. Mild mid abdominal tenderness is elicited. There was no rebound tenderness. Extremities do not reveal edema. Dorsalis pedis was 2+ bilateral. Past Medical history includes old history of CVA, diverticulosis, kidney stones, old history of traumatic brain injury, hypertension, status post appendectomy/cholecystectomy/tubal ligation. Has had colectomy because of diverticulosis before. Denies smoking and alcohol abuse. Creatinine: 1.04 - 1.34 - 0.95 - 1.06 Potassium: 4.0 - 4.4 - 4.1 - 4.0 Troponin (high sensitive): 3 - 3 - <3 AST/ALT: 2063/1220 - 528/758 - 208/514 Total bilirubin: 1.2 - 1.2 Chest x-ray revealed: IMPRESSION: 1. No acute disease. Abdominal ultrasound revealed: IMPRESSION: 1. Enlarged fatty liver. 2. No biliary dilatation. Gallbladder has been removed CT of head revealed: IMPRESSION: No acute intracranial abnormality. Telemetry reveals sinus rhythm Echocardiogram reported: Left ventricle: Left ventricle was normal sized with normal systolic function. LVEF was 66%. There was no gross wall motion abnormality. Right ventricle was normal sized with normal systolic function. Both atria were normal sized. Aortic valve is trileaflet. There was no aortic insufficiency/stenosis. There was trivial mitral/tricuspid regurgitation. There was no pulmonary valve insufficiency. Right ventricular systolic pressure was assessed at 28 mm Hg (normal). There was no pericardial effusion. Patient is a 59-year-old female who presented with palpitation and atypical chest discomfort. Reportedly patient's blood pressure was above 200 at home. Serial high sensitive troponin has been negative. Echocardiogram was done revealing. Acute coronary syndrome is not considered at this point. [place] is ruled out. Patient was found to have significantly elevated liver enzymes. Hypertensive urgency/emergency Palpitations Old history of CVA Abnormal liver enzymes Diverticulosis, history of Cardiac suggestions for management: Manage on telemetry Follow up electrolytes and kidney function test and Correct abnormalities Follow up vital signs and treat hypertension GI consultation for abnormal liver enzymes is suggested Stress test/long-term monitor can be arranged as outpatient Further evaluation and management depends on the above and clinical course A total of 55 minutes was spent reviewing the patient record, examining the patient, making a diagnostic and therapeutic plan, discussing this plan with medical personnel, following up on diagnostic studies and following the patient for clinical stability excluding any and all procedures. At least 50% of this time was spent in direct, [id number] contact. Thank you for allowing me to participate in this patient's care. Further recommendations will depend on patient's clinical course. Please do not hesitate to contact me if you have any questions or concerns. This medical document was created using electronic medical record system with [employer] computerized dictation system. Although this document has been carefully reviewed, there may still be some phonetic and typographical errors. These areas are purely typographical due to the imperfection of the software programs, and do not reflect any compromise in the patient's medical care. Plan discussed with: Patient, Other (nurse) LIZBETH AVELAR MD Jul 26, 2024 06:40
[2024-07-26 07:22] LABS: Albumin 4.1 g/dL (3.2-4.8); Alkaline Phosphatase 101 U/L (46-116); Anion Gap 8 (5-15); BUN/Creatinine Ratio 18.9 (10.0-20.0); Blood Urea Nitrogen 20 mg/dL (9-23); Calcium 9.6 mg/dL (8.7-10.4); Carbon Dioxide 28 mmol/L (20-31); Chloride 103 mmol/L (98-107); Glucose 98 mg/dL (74-106); Lipase 40 U/L (12-53); Magnesium 2.2 mg/dL (1.6-2.6); Sodium 139 mmol/L (136-145)
[2024-07-26 07:23] LABS: Bilirubin, Total 0.8 mg/dL (0.2-1.0); Total Protein 6.3 g/dL (5.7-8.2)
[2024-07-26 07:32] LABS: Alanine Aminotransferase 514 U/L (7-40); Aspartate Aminotransferase 208 U/L (13-40)
[2024-07-26 08:30] VITALS: PULSE 60; RESP 14
[2024-07-26 09:25] VITALS: BP 139/88; PULSE 88; RESP 19; TEMP 98.3; O2SAT 100
--- NOTE | 2024-07-26 13:14 | DVHINCON2 ---
GI Consult Consult Note GI consult note Date of Consultation: 07/26/2024 Chief Complaint: Elevated LFTs Referring Physician: Dr. Adkins H&P: 59-year-old female presented to ER with chest pain Patient now complaining of headache No abdominal pain. Patient had nausea and vomiting. No hematemesis Patient denies alcohol use. No history of hepatitis SP cholecystectomy 15 years ago SP abdominal surgery for diverticulitis in 1990 SP colonoscopy more than 10 years ago within normal limits Past Medical History: Cardiovascular: HTN COUNTRY MANAGER: Other (CVA and TBI) GI: Diverticulosis Renal/: Other (H/O kidney stones) Past Surgical History: Appendectomy, Cholecystectomy, Other (Kidney stone removal, colon surgery for diverticulitis), Tubal Ligation Social History: NO smoking, drinking ETOH and use of illegal drugs. Family History: Noncontributory Review of Systems: Constitutional: no fever, chill, weight loss HEENT: Headache Heart: no chest pain, no chest pressure Lung: no cough, no dyspnea with exertion Abdomen: see HPI Physical exam: General: NAD, AAOX3 Chest: lung coates clear to auscultation Heart: RRR, no murmur Abdomen: non-distended, no tenderness to palpation, +BS Labs: Labs Test 07/26/24 05:30 07/25/24 05:26 07/24/24 06:06 Range/Units Sodium Level 139 136-145 mmol/L Potassium Level 4.0 3.5-5.1 mmol/L Chloride Level 103 98-107 mmol/L Carbon Dioxide Level 28 20-31 mmol/L Anion Gap 8 5-15 Blood Urea Nitrogen 20 9-23 mg/dL Creatinine 1.06 H 0.550-1.02 mg/dL Glomerular Filtration Rate Calc 61 >90 mL/min BUN/Creatinine Ratio 18.9 10.0-20.0 Serum Glucose 98 74-106 mg/dL Calcium Level 9.6 8.7-10.4 mg/dL Magnesium Level 2.2 1.6-2.6 mg/dL Total Bilirubin 0.8 0.2-1.0 mg/dL Aspartate Amino Transferase (AST) 208 H 13-40 U/L Alanine Aminotransferase (ALT) 514 H 7-40 U/L Alkaline Phosphatase 101 46-116 U/L Total Protein 6.3 5.7-8.2 g/dL Albumin 4.1 3.2-4.8 g/dL Lipase 40 12-53 U/L Thyroid Stimulating Hormone (TSH) 7.57 H 0.55-4.78 uIU/mL White Blood Count 3.6 #L 4.4-10.8 10^3/uL Red Blood Count 4.84 4.0-5.20 10^6/uL Hemoglobin 13.7 12.2-16.2 g/dL Hematocrit 41.7 36.0-46.0 % Mean Corpuscular Volume 86.1 80.0-100.0 fL Mean Corpuscular Hemoglobin 28.4 28.0-32.0 pg Mean Corpuscular Hemoglobin Concent 33.0 32.0-36.0 g/dL Red Cell Distribution Width 14.0 11.8-14.3 % Platelet Count 181 140-450 10^3/uL Mean Platelet Volume 7.1 6.9-10.8 fL Neutrophils (%) (Auto) 45.2 37.0-80.0 % Lymphocytes (%) (Auto) 38.4 10.0-50.0 % Monocytes (%) (Auto) 7.3 0.0-12.0 % Eosinophils (%) (Auto) 7.9 H 0.0-7.0 % Basophils (%) (Auto) 1.2 0.0-2.0 % Neutrophils # (Auto) 1.6 1.6-8.6 10 ^3/uL Lymphocytes # (Auto) 1.4 0.4-5.4 10 ^3/uL Monocytes # (Auto) 0.3 0-1.3 10 ^3/uL Eosinophils # (Auto) 0.3 0-0.8 10 ^3/uL Basophils # (Auto) 0 0-0.2 10 ^3/uL Nucleated Red Blood Cells 0.2 % Troponin I High Sensitivity < 3 L </=34 ng/L Hepatitis B Surface Antigen Negative Negative Hepatitis C Antibody Negative Negative Imaging: Abdominal ultrasound IMPRESSION: 1. Enlarged fatty liver. 2. No biliary dilatation. Gallbladder has been removed Assessment: Chest pain Elevated LFTs possible secondary to hypoxemia/hypotension/or cardiac in origin Fatty liver Headache Plan: -discussed with Dr. Jaimes Monitor labs DC hepatotoxic medications Ferritin We will continue to monitor patient Thank you for the consult Date of Service: Jul 26, 2024 Billing Provider: [place] SIDDIQI Common Visit Codes: CONSULT ONLY Consultation Codes: [id number] CONSULT <45MIN [place] SIDDIQI Jul 26, 2024 13:14
[2024-07-26 13:58] LABS: Cholesterol 161 mg/dL (< 200)
[2024-07-26 13:59] LABS: HDL Cholesterol 45 mg/dL (40-59); LDL Cholesterol 89 mg/dL (< 100); Triglycerides 160 mg/dL (< 150)
--- NOTE | 2024-07-26 14:22 | DVHPN2 ---
Subjective She is still complaining of headache and chest pain and neck pain CT scan of the head was negative Liver functions keeps improving Changes from previous H/P or p: Changes Eyes: No Pain, No Vision change, No Conjunctivae inflammation, No Eyelid inflammation, No Other, No Redness ENT: No Ear pain, No Ear discharge, No Nose pain, No Nose discharge, No Nose congestion, No Mouth pain, No Mouth swelling, No Throat pain, No Throat swelling, No Other Cardiovascular: Chest Pain, Palpitations; No Orthopnea, No Paroxysmal Noc. Dyspnea, No Edema, No Lt Headedness, No Other Respiratory: No Cough, No Dry, No Shortness of breath, No SOB with excertion, No Wheezing, No Hemoptysis, No Pleuritic Pain, No Sputum, No Other Gastrointestinal: No Nausea, No Vomiting, No Abdominal Pain, No Diarrhea, No Constipation, No Melena, No Hematochezia, No Other Genitourinary: No Dysuria, No Frequency, No Incontinence, No Hematuria, No Retention, No Other Musculoskeletal: No other, No neck pain, No shoulder pain, No arm pain, No back pain, No hand pain, No leg pain, No foot pain Skin: No Rash, No Lesions, No Jaundice, No Bruising, No Other Objective Vitals Vital Signs Date Time Temp Pulse Resp B/P (MAP) Pulse Ox O2 Delivery O2 Flow Rate FiO2 07/26/24 11:29 63 102/68 07/26/24 11:03 16 07/26/24 09:25 98.3 100 98.3 07/25/24 20:00 Room Air* 0 21 Intake/Output Intake and Output 07/26/24 07:00 Intake Total 1750 ml Balance 1750 ml Intake Oral 1750 ml # Voids 7 General Appearance: Alert, Oriented X3, Cooperative Lungs: Clear to auscultation, Normal air movement Cardiovascular: Regular rate, Normal S1, Normal S2 Abdomen: Normal bowel sounds, Soft, No tenderness Extremities: No edema Medications Current Medications Medications Dose Ordered Sig/Tre Route Start Time Stop Time Status Last Admin Dose Admin Sodium Chloride 10 ml Q8HR IV 07/24/24 14:00 07/26/24 05:34 10 ML Ondansetron HCl 4 mg Q4HP PRN IV 07/24/24 10:45 07/26/24 10:32 4 MG Docusate Sodium 100 mg BIDPRN PRN PO 07/24/24 10:45 Acetaminophen 650 mg Q6HP PRN PO 07/24/24 10:45 Nitroglycerin 0.4 mg Q5MINP PRN SL 07/24/24 10:45 Morphine Sulfate 2 mg Q30M PRN IV 07/24/24 10:45 Hydralazine HCl 25 mg DAILY PO 07/25/24 10:00 07/25/24 10:45 25 MG Lisinopril 20 mg DAILY PO 07/25/24 10:00 07/25/24 10:45 20 MG Carvedilol 6.25 mg BID PO 07/24/24 22:00 07/25/24 22:07 6.25 MG Morphine Sulfate 2 mg Q4HPRN PRN IV 07/25/24 12:45 07/26/24 10:33 2 MG Laboratory Results Laboratory Tests 07/25/24 05:26 07/26/24 05:30 Chemistry Test 07/26/24 05:30 Albumin 4.1 g/dL (3.2-4.8) Calcium Level 9.6 mg/dL (8.7-10.4) Magnesium Level 2.2 mg/dL (1.6-2.6) Total Protein 6.3 g/dL (5.7-8.2) Lipid panel Test 07/26/24 05:30 Cholesterol Level 161 mg/dL (< 200) HDL Cholesterol 45 mg/dL (40-59) Lipase 40 U/L (12-53) Triglycerides Level 160 mg/dL (< 150) H LFT Test 07/26/24 05:30 Alanine Aminotransferase (ALT) 514 U/L (7-40) H Alkaline Phosphatase 101 U/L (46-116) Aspartate Amino Transferase (AST) 208 U/L (13-40) H Total Bilirubin 0.8 mg/dL (0.2-1.0) HgA1c, TSH Test 07/26/24 05:30 Thyroid Stimulating Hormone (TSH) 7.57 uIU/mL (0.55-4.78) H Assessment/Plan Assessment/Plan Chest pain Headache Hypertensive urgency Uncontrolled hypertension Old CVA History of traumatic brain injury Hypertension Transaminitis Fatty liver History of left kidney mass per patient Plan Hepatitis panel GI consult Monitor the liver functions Discontinue [place] Order morphine p.r.n. for the headache and pain CT scan of the head Neurology consult Full code Discussed with the patient and at the bedside Advance directives discussed for 15 minutes Get the report of the MRI of the kidneys that the patient said she had it done about 10 days ago Due 06/02/2025: Neurology consult is still pending Continue to monitor the liver function tests GI consult regarding elevated liver functions Monitor closely Plan discussed with: Patient, Spouse My Orders Orders - CHRISTIANO BONDS MD Procedure Category Date Status Time Electrocardigram EKG 07/25/24 Logged 17:42 * Gi D[facility] Fugitive Investigator CONS 07/26/24 Transmitted 10:21 Date of Service: Jul 26, 2024 Billing Provider: CHRISTIANO BONDS MD Common Visit Codes: [id number] INP/OBS CARE(HIGH) CHRISTIANO BONDS MD Jul 26, 2024 14:22
--- NOTE | 2024-07-26 14:32 | ECG ---
[facility] Test Date: 2024-07-25 Test Time: 17:42:00 Pat Name: KEITH ESPINOZA Department: Room: 0284T A Gender: F Pan Washer Hand: JOHNSON : 1965 Requested By: CHRISTIANO BONDS Order Number: [id number] Reading MD: Reinier Rodriguez Measurements Intervals [place] Rate: 68 P: 49 WI: 147 QRS: 11 QRSD: 114 T: 16 QT: 426 QTc: 454 Interpretive Statements Sinus rhythm Probable left atrial enlargement Incomplete left bundle branch block Electronically Signed On 07-27-2024 9:34:28 PST by Reinier Rodriguez Please click the below link to view image of tracing.
[2024-07-26 17:24] VITALS: BP 112/75; PULSE 91; RESP 16; TEMP 97.8; O2SAT 93
[2024-07-26 20:00] VITALS: PULSE 72; RESP 17; O2SAT 96
[2024-07-26 21:00] VITALS: BP 139/88; PULSE 88; RESP 19; TEMP 98.3; O2SAT 100
[2024-07-27] VITALS (8 sets, daily range): BP systolic 93–128; BP diastolic 53–85; PULSE 59–83; RESP 17–20; TEMP 97.4–98.3; O2SAT 90–96
[2024-07-27 07:29] LABS: Albumin 4.3 g/dL (3.2-4.8); Alkaline Phosphatase 96 U/L (46-116); Anion Gap 7 (5-15); BUN/Creatinine Ratio 18.1 (10.0-20.0); Bilirubin, Total 0.8 mg/dL (0.2-1.0); Blood Urea Nitrogen 19 mg/dL (9-23); Calcium 9.9 mg/dL (8.7-10.4); Carbon Dioxide 28 mmol/L (20-31); Chloride 103 mmol/L (98-107); Potassium 4.1 mmol/L (3.5-5.1); Sodium 138 mmol/L (136-145); Total Protein 6.5 g/dL (5.7-8.2)
[2024-07-27 07:30] LABS: Alanine Aminotransferase 371 U/L (7-40); Aspartate Aminotransferase 96 U/L (13-40); Glucose 107 mg/dL (74-106)
--- NOTE | 2024-07-27 08:07 | DVHPN2 ---
Progress Note - Dictate Date Seen: Jul 27, 2024 Medical Necessity Reason Pt with a Central, PICC or Fol: No vital signs Vital Sign Date Time Temp Pulse Resp B/P (MAP) Pulse Ox O2 Delivery O2 Flow Rate FiO2 07/27/24 06:47 69 18 125/84 07/27/24 05:00 97.5 91 97.5 07/26/24 20:00 Room Air* 0 21 Total Intake and Output 07/26/24 07/26/24 07/27/24 15:00 23:00 07:00 Intake Total 900 ml 900 ml Balance 900 ml 900 ml medications Current Medications Medications Dose Ordered Sig/Tre Route Start Time Stop Time Status Last Admin Dose Admin Sodium Chloride 10 ml Q8HR IV 07/24/24 14:00 07/27/24 06:45 10 ML Ondansetron HCl 4 mg Q4HP PRN IV 07/24/24 10:45 07/26/24 17:31 4 MG Docusate Sodium 100 mg BIDPRN PRN PO 07/24/24 10:45 Acetaminophen 650 mg Q6HP PRN PO 07/24/24 10:45 Nitroglycerin 0.4 mg Q5MINP PRN SL 07/24/24 10:45 Morphine Sulfate 2 mg Q30M PRN IV 07/24/24 10:45 Hydralazine HCl 25 mg DAILY PO 07/25/24 10:00 07/25/24 10:45 25 MG Lisinopril 20 mg DAILY PO 07/25/24 10:00 07/25/24 10:45 20 MG Carvedilol 6.25 mg BID PO 07/24/24 22:00 07/26/24 21:57 6.25 MG Morphine Sulfate 2 mg Q4HPRN PRN IV 07/25/24 12:45 07/27/24 06:47 2 MG laboratory and microbiology Laboratory Tests 07/27/24 05:04 07/25/24 05:26 Test 07/27/24 05:04 Range/Units Serum Glucose 107 H 74-106 mg/dL Assessment/Plan Patient is a 59-year-old female who presents to the hospital with palpitation/atypical chest discomfort and headaches. She has been experiencing occasional palpitation which increased. She mentions that her blood pressure was over 200 at home and she decided come to the hospital. 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 Cardiology was involved for cardiac aspects for care. Denies loss of consciousness. Denies shortness of breath. Not in acute distress. No JVD. Mucosa is pink and wet. No carotid bruit. Lungs are clear to auscultation. Not using accessory muscles of breathing. Cardiac: Regular, no thrills/gallop. Abdomen is soft. Bowel sound is positive. Mild mid abdominal tenderness is elicited. There was no rebound tenderness. Extremities do not reveal edema. Dorsalis pedis was 2+ bilateral. Past Medical history includes old history of CVA, diverticulosis, kidney stones, old history of traumatic brain injury, hypertension, status post appendectomy/cholecystectomy/tubal ligation. Has had colectomy because of diverticulosis before. Denies smoking and alcohol abuse. Creatinine: 1.04 - 1.34 - 0.95 - 1.06 - 1.05 Potassium: 4.0 - 4.4 - 4.1 - 4.0 - 4.1 Troponin (high sensitive): 3 - 3 - <3 AST/ALT: 2063/1220 - 528/758 - 208/514 - 96/371 Total bilirubin: 1.2 - 1.2 TSH: 7.57 Chest x-ray revealed: IMPRESSION: 1. No acute disease. Abdominal ultrasound revealed: IMPRESSION: 1. Enlarged fatty liver. 2. No biliary dilatation. Gallbladder has been removed CT of head revealed: IMPRESSION: No acute intracranial abnormality. Telemetry reveals sinus rhythm Echocardiogram reported: Left ventricle: Left ventricle was normal sized with normal systolic function. LVEF was 66%. There was no gross wall motion abnormality. Right ventricle was normal sized with normal systolic function. Both atria were normal sized. Aortic valve is trileaflet. There was no aortic insufficiency/stenosis. There was trivial mitral/tricuspid regurgitation. There was no pulmonary valve insufficiency. Right ventricular systolic pressure was assessed at 28 mm Hg (normal). There was no pericardial effusion. Patient is a 59-year-old female who presented with palpitation and atypical chest discomfort. Reportedly patient's blood pressure was above 200 at home. Serial high sensitive troponin has been negative. Echocardiogram was done revealing. Acute coronary syndrome is not considered at this point. [place] is ruled out. Patient was found to have significantly elevated liver enzymes. Is seen / evaluated by GI Hypertensive urgency/emergency Palpitations Old history of CVA Abnormal liver enzymes Diverticulosis, history of Cardiac suggestions for management: Manage on telemetry Follow up electrolytes and kidney function test and Correct abnormalities Follow up vital signs and treat hypertension Consider D-dimer and if abnormal request for CTA of lungs. If normal consider CT of chest with no contrast GI follow up Stress test/long-term monitor can be arranged as outpatient Further evaluation and management depends on the above and clinical course A total of 55 minutes was spent reviewing the patient record, examining the patient, making a diagnostic and therapeutic plan, discussing this plan with medical personnel, following up on diagnostic studies and following the patient for clinical stability excluding any and all procedures. At least 50% of this time was spent in direct, [id number] contact. Thank you for allowing me to participate in this patient's care. Further recommendations will depend on patient's clinical course. Please do not hesitate to contact me if you have any questions or concerns. This medical document was created using electronic medical record system with [employer] computerized dictation system. Although this document has been carefully reviewed, there may still be some phonetic and typographical errors. These areas are purely typographical due to the imperfection of the software programs, and do not reflect any compromise in the patient's medical care. Plan discussed with: Patient, Other (nurse) LIZBETH AVELAR MD Jul 27, 2024 08:06
--- NOTE | 2024-07-27 09:59 | DVH ---
CAROTID ARTERIAL DOPPLER CLINICAL HISTORY: headache TECHNIQUE: Doppler study of bilateral carotid/vertebral arteries were performed. Comparison: None FINDINGS: The bilateral common carotid, external and internal carotid arteries appear patent without hemodynami jono significant stenosis. There is no significant flow limiting plaque formation identified.The sp ectral wave forms and peak systolic velocities are within normal limits. Antegrade flow is present within the vertebral arteries with appropriate velocities and waveforms. Right ICA/CCA PSV ratio = 1.5. Left ICA/CCA PSV ratio = 1.1 . IMPRESSION: 1. No hemodynamically significant stenosis within the carotid arteries. HS:Y
--- NOTE | 2024-07-27 11:02 | DVHPN2 ---
Subjective He is still complaining of the headache And the chest pain Changes from previous H/P or p: Changes Eyes: No Pain, No Vision change, No Conjunctivae inflammation, No Eyelid inflammation, No Other, No Redness ENT: No Ear pain, No Ear discharge, No Nose pain, No Nose discharge, No Nose congestion, No Mouth pain, No Mouth swelling, No Throat pain, No Throat swelling, No Other Cardiovascular: Chest Pain, Palpitations; No Orthopnea, No Paroxysmal Noc. Dyspnea, No Edema, No Lt Headedness, No Other Respiratory: No Cough, No Dry, No Shortness of breath, No SOB with excertion, No Wheezing, No Hemoptysis, No Pleuritic Pain, No Sputum, No Other Gastrointestinal: No Nausea, No Vomiting, No Abdominal Pain, No Diarrhea, No Constipation, No Melena, No Hematochezia, No Other Genitourinary: No Dysuria, No Frequency, No Incontinence, No Hematuria, No Retention, No Other Musculoskeletal: No other, No neck pain, No shoulder pain, No arm pain, No back pain, No hand pain, No leg pain, No foot pain Skin: No Rash, No Lesions, No Jaundice, No Bruising, No Other Objective Vitals Vital Signs Date Time Temp Pulse Resp B/P (MAP) Pulse Ox O2 Delivery O2 Flow Rate FiO2 07/27/24 09:26 121/85 07/27/24 09:25 71 07/27/24 07:30 18 07/27/24 05:00 97.5 91 97.5 07/26/24 20:00 Room Air* 0 21 Intake/Output Intake and Output 07/27/24 07:00 Intake Total 1800 ml Balance 1800 ml Intake Oral 1800 ml # Voids 7 General Appearance: Alert, Oriented X3, Cooperative Lungs: Clear to auscultation, Normal air movement Cardiovascular: Regular rate, Normal S1, Normal S2 Abdomen: Normal bowel sounds, Soft, No tenderness Extremities: No edema Medications Current Medications Medications Dose Ordered Sig/Tre Route Start Time Stop Time Status Last Admin Dose Admin Sodium Chloride 10 ml Q8HR IV 07/24/24 14:00 07/27/24 06:45 10 ML Ondansetron HCl 4 mg Q4HP PRN IV 07/24/24 10:45 07/26/24 17:31 4 MG Docusate Sodium 100 mg BIDPRN PRN PO 07/24/24 10:45 Acetaminophen 650 mg Q6HP PRN PO 07/24/24 10:45 Nitroglycerin 0.4 mg Q5MINP PRN SL 07/24/24 10:45 Morphine Sulfate 2 mg Q30M PRN IV 07/24/24 10:45 Lisinopril 20 mg DAILY PO 07/25/24 10:00 07/27/24 09:26 20 MG Carvedilol 6.25 mg BID PO 07/24/24 22:00 07/27/24 09:25 6.25 MG Morphine Sulfate 2 mg Q4HPRN PRN IV 07/25/24 12:45 07/27/24 06:47 2 MG Laboratory Results Laboratory Tests 07/25/24 05:26 07/27/24 05:04 Chemistry Test 07/27/24 05:04 Albumin 4.3 g/dL (3.2-4.8) Calcium Level 9.9 mg/dL (8.7-10.4) Total Protein 6.5 g/dL (5.7-8.2) Coagulation Test 07/27/24 05:04 D-Dimer, Quantitative 0.65 mg/L FEU (0.0-0.49) H LFT Test 07/27/24 05:04 Alanine Aminotransferase (ALT) 371 U/L (7-40) H Alkaline Phosphatase 96 U/L (46-116) Aspartate Amino Transferase (AST) 96 U/L (13-40) H Total Bilirubin 0.8 mg/dL (0.2-1.0) Assessment/Plan Assessment/Plan Chest pain Headache Hypertensive urgency Uncontrolled hypertension Old CVA History of traumatic brain injury Hypertension Transaminitis Fatty liver History of left kidney mass per patient Plan Hepatitis panel GI consult Monitor the liver functions Discontinue [place] Order morphine p.r.n. for the headache and pain CT scan of the head Neurology consult Full code Discussed with the patient and at the bedside Advance directives discussed for 15 minutes Get the report of the MRI of the kidneys that the patient said she had it done about 10 days ago 07/26/2024: Neurology consult is still pending Continue to monitor the liver function tests GI consult regarding elevated liver functions Monitor closely 07/27/2024: The patient is complaining of headache and chest pain We will get a CT angiogram of the chest to rule out PE Do a carotid Doppler Do a brain MRI Neurology consult is pending The rest of the management will depend on the hospital course Plan discussed with: Patient My Orders Orders - CHRISTIANO BONDS MD Procedure Category Date Status Time Brain Head Wo Contrast MRI 07/27/24 Logged 09:17 Carotid Duplx W Color US 07/27/24 Resulted DOP 09:17 Date of Service: Jul 27, 2024 Billing Provider: CHRISTIANO BONDS MD Common Visit Codes: [id number] INP/OBS CARE(HIGH) CHRISTIANO BONDS MD Jul 27, 2024 11:02
--- NOTE | 2024-07-27 11:16 | DVHPNRES ---
Progress Note Medical Necessity Reason Pt with a Central, PICC or Fol: No Objective vital signs Vital Sign Date Time Temp Pulse Resp B/P (MAP) Pulse Ox O2 Delivery O2 Flow Rate FiO2 07/27/24 09:26 121/85 07/27/24 09:25 71 07/27/24 07:30 18 07/27/24 05:00 97.5 91 97.5 07/26/24 20:00 Room Air* 0 21 Total Intake and Output 07/26/24 07/26/24 07/27/24 15:00 23:00 07:00 Intake Total 900 ml 900 ml Balance 900 ml 900 ml medications Current Medications Medications Dose Ordered Sig/Tre Route Start Time Stop Time Status Last Admin Dose Admin Sodium Chloride 10 ml Q8HR IV 07/24/24 14:00 07/27/24 06:45 10 ML Ondansetron HCl 4 mg Q4HP PRN IV 07/24/24 10:45 07/26/24 17:31 4 MG Docusate Sodium 100 mg BIDPRN PRN PO 07/24/24 10:45 Acetaminophen 650 mg Q6HP PRN PO 07/24/24 10:45 Nitroglycerin 0.4 mg Q5MINP PRN SL 07/24/24 10:45 Morphine Sulfate 2 mg Q30M PRN IV 07/24/24 10:45 Lisinopril 20 mg DAILY PO 07/25/24 10:00 07/27/24 09:26 20 MG Carvedilol 6.25 mg BID PO 07/24/24 22:00 07/27/24 09:25 6.25 MG Morphine Sulfate 2 mg Q4HPRN PRN IV 07/25/24 12:45 07/27/24 06:47 2 MG laboratory and microbiology Laboratory Tests 07/27/24 05:04 07/25/24 05:26 Test 07/27/24 05:04 Range/Units Serum Glucose 107 H 74-106 mg/dL UNRULY MACK RESIDENT Jul 27, 2024 11:16
[2024-07-27] MEDS: LORazepam 0.5 MG TAB PO ONE (11:24)
[2024-07-27] MEDS ORDERED: IOHEXOL 350 MG/ML 100ML IJ ONE (11:46)
--- NOTE | 2024-07-27 12:46 | DVH ---
EXAMINATION: MRI BRAIN HEAD WO CONTRAST INDICATION: headache COMPARISON: CT head 07/25/2024. TECHNIQUE: Multiplanar, multisequence magnetic resonance imaging of the brain was performed without t he use of intravenous contrast. FINDINGS: There is no restricted diffusion. There are few scattered small hyperintense T2 foci in the supratent orial white matter likely related to minimal chronic microvascular ischemic changes. There is no evid ence of hemorrhage, mass, mass effect or midline shift. There is no hydrocephalus or extra-axial flui d collection. The visualized intracranial vasculature demonstrates appropriate flow-voids. The sagitt al midline structures appear unremarkable. The craniocervical junction is within normal limits. The c alvarium demonstrates normal marrow signal. The paranasal sinuses and mastoid air cells are clear. IMPRESSION: 1. There is no acute intracranial process. HS:Y
--- NOTE | 2024-07-27 13:09 | DVH ---
PROCEDURE: CT CT ANGIO CHEST CONTRAST 07/27/2024 11:44 AM INDICATION: CP COMPARISON: None TECHNIQUE: Coverage: Thorax IV contrast: Administered Phases: Arterial Multiplanar 3-D Maximum Intensity Projection images (MIP) reconstructions were created by the technroly squires in the coronal and sagittal planes as part of the CT angiography protocol. Adverse events: None Medication laboratory values were reviewed to verify the patient meets criteria for contrast administ ration. All CT scans at this medical facility are performed using dose modulation techniques as appropriate t o a performed exam including the following: Automated exposure control was utilized; adjustment of th e MA and/or KV according to patient size; and use of iterative reconstruction technique. Radiation dose: CTDIvol 8.88 mGy, DLP 402.97 mGy*cm. FINDINGS: Cardiovascular: No evidence of acute or chronic pulmonary emboli identified. Aorta is normal in calib er. The heart is normal in size. Lungs: No lobar consolidation. Mild bibasilar subsegmental atelectasis. Mild paraseptal emphysemato us changes noted. No pleural effusion. No pneumothorax. The airways are patent. Thyroid: A subcentimeter nodule seen in the left lobe. Esophagus: Unremarkable. Lymphatics: No hilar or mediastinal lymphadenopathy. Bones/soft tissues: No acute abnormality. Upper abdomen: No acute abnormality. Other: None. IMPRESSION: 1. No evidence of acute pulmonary emboli.
[2024-07-27] MEDS: MORPHINE SULFATE INJ 2 MG/ml SYRG IV PRN (18:24)
--- NOTE | 2024-07-27 18:47 | DVHPN2 ---
Progress Note Date Seen: Jul 27, 2024 Resident Creating Document: UNRULY MACK RESIDENT Medical Necessity Reason Pt with a Central, PICC or Fol: No Subjective Review of Systems Patient seen and examined at bedside. No new complaints. No signs of nausea, vomiting, diarrhea, fever, chills, any other symptoms. Objective vital signs Vital Sign Date Time Temp Pulse Resp B/P (MAP) Pulse Ox O2 Delivery O2 Flow Rate FiO2 07/27/24 18:24 68 18 122/83 07/27/24 17:27 98.1 93 98.1 07/27/24 08:10 Room Air* 0 21 Total Intake and Output 07/26/24 07/26/24 07/27/24 15:00 23:00 07:00 Intake Total 900 ml 900 ml Balance 900 ml 900 ml medications Current Medications Medications Dose Ordered Sig/Tre Route Start Time Stop Time Status Last Admin Dose Admin Sodium Chloride 10 ml Q8HR IV 07/24/24 14:00 07/27/24 15:07 10 ML Ondansetron HCl 4 mg Q4HP PRN IV 07/24/24 10:45 07/26/24 17:31 4 MG Docusate Sodium 100 mg BIDPRN PRN PO 07/24/24 10:45 Acetaminophen 650 mg Q6HP PRN PO 07/24/24 10:45 Nitroglycerin 0.4 mg Q5MINP PRN SL 07/24/24 10:45 Morphine Sulfate 2 mg Q30M PRN IV 07/24/24 10:45 07/27/24 18:24 2 MG Lisinopril 20 mg DAILY PO 07/25/24 10:00 07/27/24 09:26 20 MG Carvedilol 6.25 mg BID PO 07/24/24 22:00 07/27/24 09:25 6.25 MG Morphine Sulfate 2 mg Q4HPRN PRN IV 07/25/24 12:45 07/27/24 06:47 2 MG Examination General Appearance: Cooperative. Well developed. Well nourished. NAD Head Exam: Normal inspection Neck Exam: Normal inspection. Non-tender. Normal alignment Pulmonary/Respiratory: Chest non-tender. Clear bilateral breath sounds Cardiovascular/Chest: Regular rate and rhythm. No murmurs. No JVD. Peripheral Pulses: 2+ Radial (R). 2+ Radial (L). 2+ Pedal (R). 2+ Pedal (L) Abdominal Exam: Normal bowel sounds. Soft. Nontender. No hepatospenomegaly. No masses Ankle Exam: Negative ankle edema Lower extremities: Negative lower extremity edema Neuro/Mental Status: A&O x4. Coherent Thoughts/Psych: Normal thought pattern. Appropriate mood and affect. Good judgement and insight Appearance: In no acute distress Skin Exam: Normal inspection. Normal color. Warm. Dry laboratory and microbiology Laboratory Tests 07/27/24 05:04 07/25/24 05:26 Test 07/27/24 05:04 Range/Units Serum Glucose 107 H 74-106 mg/dL Problem List/Assessment/Plan Problem List/Assessment/Plan Elevated LFTs possible secondary to hypoxemia/hypotension/or cardiac in origin Fatty liver Hypertensive urgency Plan/recommendation Dr. Jaimes -liver enzymes his trending down, continue to monitor. Likely elevated liver function secondary to cardiac in origin versus hypotension. -hepatitis negative -low-level ferritin -avoid hepatotoxic medication -recommend outpatient GI follow-up for further evaluation. -no acute GI intervention needed at this point. -we will continue to monitor patient. Plan discussed with: Patient, Other (RN) UNRULY MACK RESIDENT Jul 27, 2024 18:47
--- NOTE | 2024-07-27 23:40 | DVHINCON2 ---
Date of service: Jul 27, [address] Adkins Reason for Consultation Headache History of Present Illness Ms. Moeller is a 59 years old left-handed female with a history of hypertension, diverticulitis, kidney stone, stroke, the patient came to the hospital on 07/23/2024 with a chief company of chest pain, she was has headache she was alert and fully oriented, but is not historian Fifteen years ago, the patient he was kicked by her horse at face which caused loss of consciousness for 5 minutes, and the patient was treated in local hospital, and since then she has intermittent headache, About five years ago, she was stroke, that will be further described, in the when she was discharged from the [facility], he was given amitriptyline, but it did not help the headache at all, about one year ago, the patient stopped taking. And headaches persisted In the last 2-3 months, the headache has been worse, and constant, she said it was sharp pain in bilateral frontal/parietal region, the intensity is mostly 9- 10/10, the headache does not change new med when she was standing or in the bed, she was no associated sensitivity to lights, noise, she was no focal weakness numbness, but she does not have nausea, and mild blurred vision recently About 4-5 years ago, she developed acute right-sided hemiplegia, in that she was not able to move the extremities, the patient was treated with IV tPA in the [facility] with good recovery, but on discharge, she was not discharged with aspirin/blood thinner, cholesterol medication for secondary stroke prevention She was chronic loud snoring, her sleep non-refreshing, she was excessive daytime sleepiness/fatigue, but she has not had sleep medicine evaluation Hepatitis panel, 07/24/2024: CBC, 07/23/2024: Unremarkable BUN/CR, 07/25/2024: 24/0.95, : 19/1.05 TBI/AST/ALT/AP, 07/25/2024: 1.2/528/758/113, 07/27/2024: 0.8/96/371/96 TG/HDL/LDL/HDL, 07/26/2024: 160/161/89/45 TSH, 07/26/2024: 7.57 CT head, : No acute intracranial abnormality MR head, 07/26/2024: There is no acute intracranial process Past Medical History Hypertension, stroke, kidney stone, diverticulitis, closed head injury/hoarse kicking injury, obesity Past Surgical History Kidney stone removal Family History Heart disease, hypertension, Alzheimer disease Social History She has not history of tobacco smoking, she has no history of drug or alcohol abuse Allergies: Coded Allergies: Penicillins (Unverified Allergy, Unknown, 03/30/15) Home Meds Reported Medications Hydralazine HCl (Hydralazine HCl) 25 Mg Tab, 1 07/24/24 Lisinopril (Lisinopril) 20 Mg Tab, 1 TAB PO DAILY 07/24/24 Carvedilol (Carvedilol) 6.25 Mg Tab, 1 TAB PO BID 07/24/24 Review of Systems As above, the other systems are negative Vital Signs Vital Signs Date Time Temp Pulse Resp B/P (MAP) Pulse Ox O2 Delivery O2 Flow Rate FiO2 07/27/24 23:03 85 111/76 07/27/24 21:00 97.9 17 94 97.9 07/27/24 20:00 Room Air* 0 21 Physical Exam GENERAL EXAM: General: the patient is well developed and nourished. No acute distress. HEENT: Normocephalic, neck is supple, no carotid bruits. No mass. Mild t enderness in a small area of left temporal/parietal region, there was no local erythema, swelling or permanent vasculatures RESPIRATORY: Normal respiratory effort with symmetrical lung expansion. Lungs clear to auscultation. CARDIOVASCULAR: Regular rate and rhythm with no murmurs. S1, S2. ABDOMEN: Soft, nontender, normal bowel sound NEUROLOGICAL: MENTAL STATUS: Awake and alert. Oriented to person, place, time and general circumstances. Able to give personal history. The patient is aware of recent events SPEECH, LANGUAGE, HIGHER CORTICAL FUNCTION: no aphasia or dysathria. CRANIAL NERVES: #2: Intact visual coates to confrontation. The optic discs were sharp. Retinal background was uniformly pink in appearance. There was no hemorrhages or exuda chhaya. #3,4,6: Pupils are equal, round and reactive. EOMs full and conjugate. Mild bilateral gaze evoked nystagmus. #5: Facial sensation intact in all three divisions bilaterally. Mandibular strength intact. #7: Facial muscles symmetrical and strength intact. #8: Hearing grossly normal to voice. #9,10: Uvula and soft palate rise in the midline. Swallow and voice are normal. #11: Trapezius and sternomastoid strength intact bilaterally. #12: Tongue midline. No fasciculations or atrophy. SENSATION: Sensation to touch and pinprick is normal. MOTOR: Normal tone in the upper and lower extremity. Normal muscle bulk. No fasciculations. No abnormal movements or posturing. Muscle strength of the major groups in the upper extremities is 5/5. Muscle strength of the major groups in the lower extremities is 5/5. REFLEXES: Deep tendon reflexes are symmetrical. No pathological reflexes. CEREBELLAR/COORDINATION: Finger to nose and heel to mims are normal bilaterally. GAIT/STATION: deferred. Labs/Diagnostic Data Labs Test 07/27/24 05:04 07/26/24 05:30 07/25/24 05:26 07/24/24 06:06 Range/Units D-Dimer, Quantitative 0.65 H 0.0-0.49 mg/L FEU Sodium Level 138 136-145 mmol/L Potassium Level 4.1 3.5-5.1 mmol/L Chloride Level 103 98-107 mmol/L Carbon Dioxide Level 28 20-31 mmol/L Anion Gap 7 5-15 Blood Urea Nitrogen 19 9-23 mg/dL Creatinine 1.05 H 0.550-1.02 mg/dL Glomerular Filtration Rate Calc 61 >90 mL/min BUN/Creatinine Ratio 18.1 10.0-20.0 Serum Glucose 107 H 74-106 mg/dL Calcium Level 9.9 8.7-10.4 mg/dL Total Bilirubin 0.8 0.2-1.0 mg/dL Aspartate Amino Transferase (AST) 96 H 13-40 U/L Alanine Aminotransferase (ALT) 371 H 7-40 U/L Alkaline Phosphatase 96 46-116 U/L Total Protein 6.5 5.7-8.2 g/dL Albumin 4.3 3.2-4.8 g/dL Magnesium Level 2.2 1.6-2.6 mg/dL Ferritin 48.5 10-291 ng/mL Triglycerides Level 160 H < 150 mg/dL Cholesterol Level 161 < 200 mg/dL LDL Cholesterol 89 < 100 mg/dL HDL Cholesterol 45 40-59 mg/dL Lipase 40 12-53 U/L Thyroid Stimulating Hormone (TSH) 7.57 H 0.55-4.78 uIU/mL White Blood Count 3.6 #L 4.4-10.8 10^3/uL Red Blood Count 4.84 4.0-5.20 10^6/uL Hemoglobin 13.7 12.2-16.2 g/dL Hematocrit 41.7 36.0-46.0 % Mean Corpuscular Volume 86.1 80.0-100.0 fL Mean Corpuscular Hemoglobin 28.4 28.0-32.0 pg Mean Corpuscular Hemoglobin Concent 33.0 32.0-36.0 g/dL Red Cell Distribution Width 14.0 11.8-14.3 % Platelet Count 181 140-450 10^3/uL Mean Platelet Volume 7.1 6.9-10.8 fL Neutrophils (%) (Auto) 45.2 37.0-80.0 % Lymphocytes (%) (Auto) 38.4 10.0-50.0 % Monocytes (%) (Auto) 7.3 0.0-12.0 % Eosinophils (%) (Auto) 7.9 H 0.0-7.0 % Basophils (%) (Auto) 1.2 0.0-2.0 % Neutrophils # (Auto) 1.6 1.6-8.6 10 ^3/uL Lymphocytes # (Auto) 1.4 0.4-5.4 10 ^3/uL Monocytes # (Auto) 0.3 0-1.3 10 ^3/uL Eosinophils # (Auto) 0.3 0-0.8 10 ^3/uL Basophils # (Auto) 0 0-0.2 10 ^3/uL Nucleated Red Blood Cells 0.2 % Troponin I High Sensitivity < 3 L </=34 ng/L Hepatitis B Surface Antigen Negative Negative Hepatitis C Antibody Negative Negative Assessment Chronic headache with recent exacerbation, etiology unclear Reported stroke, but was not prescribed secondary stroke prevention management Sleep-related breathing disorder Hypersomnia Plan/Recommendation Monitoring Supportive treatment Telemetry ESR CRP A trial of nortriptyline 40 mg HS Current management Address her sleep-related breathing disorder as outpatient The patient was advised to follow with her doctor for ongoing care, Progress: Poor This medical document was created using an electronic medical record system with [employer] system. Although this document has been carefully reviewed, there may still be some phonetic and typographical errors. These areas are purely typographical due to imperfections of the software programs, and do not reflect any compromise in the patient's medical care Plan discussed with: Patient, Other RAGHAVENDRA HARRINGTON MD Jul 27, 2024 23:40
[2024-07-28] VITALS (7 sets, daily range): BP systolic 105–133; BP diastolic 71–83; PULSE 58–79; RESP 15–18; TEMP 97.6–98.9; O2SAT 92–97
--- NOTE | 2024-07-28 07:17 | DVHPN2 ---
Progress Note - Dictate Date Seen: Jul 28, 2024 Medical Necessity Reason Pt with a Central, PICC or Fol: No vital signs Vital Sign Date Time Temp Pulse Resp B/P (MAP) Pulse Ox O2 Delivery O2 Flow Rate FiO2 07/28/24 05:00 97.6 58 17 112/80 (91) 97 97.6 07/27/24 20:00 Room Air* 0 21 Total Intake and Output 07/27/24 07/27/24 07/28/24 15:00 23:00 07:00 Intake Total 1200 ml 800 ml Balance 1200 ml 800 ml medications Current Medications Medications Dose Ordered Sig/Tre Route Start Time Stop Time Status Last Admin Dose Admin Sodium Chloride 10 ml Q8HR IV 07/24/24 14:00 07/28/24 06:00 10 ML Ondansetron HCl 4 mg Q4HP PRN IV 07/24/24 10:45 07/26/24 17:31 4 MG Docusate Sodium 100 mg BIDPRN PRN PO 07/24/24 10:45 Acetaminophen 650 mg Q6HP PRN PO 07/24/24 10:45 Nitroglycerin 0.4 mg Q5MINP PRN SL 07/24/24 10:45 Morphine Sulfate 2 mg Q30M PRN IV 07/24/24 10:45 07/27/24 18:24 2 MG Lisinopril 20 mg DAILY PO 07/25/24 10:00 07/27/24 09:26 20 MG Carvedilol 6.25 mg BID PO 07/24/24 22:00 07/27/24 23:03 6.25 MG Morphine Sulfate 2 mg Q4HPRN PRN IV 07/25/24 12:45 07/27/24 06:47 2 MG Nortriptyline HCl 40 mg HS PO 07/28/24 22:00 laboratory and microbiology Laboratory Tests 07/27/24 05:04 07/25/24 05:26 Test 07/27/24 05:04 Range/Units Serum Glucose 107 H 74-106 mg/dL Assessment/Plan Patient is a 59-year-old female who presents to the hospital with palpitation/atypical chest discomfort and headaches. She has been experiencing occasional palpitation which increased. She mentions that her blood pressure was over 200 at home and she decided come to the hospital. She has not seen testing lead is before. Cardiology was involved for cardiac aspects for care. Denies loss of consciousness. Denies shortness of breath. Not in acute distress. No JVD. Mucosa is pink and wet. No carotid bruit. Lungs are clear to auscultation. Not using accessory muscles of breathing. Cardiac: Regular, no thrills/gallop. Abdomen is soft. Bowel sound is positive. Mild mid abdominal tenderness is elicited. There was no rebound tenderness. Extremities do not reveal edema. Dorsalis pedis was 2+ bilateral. Past Medical history includes old history of CVA, diverticulosis, kidney stones, old history of traumatic brain injury, hypertension, status post appendectomy/cholecystectomy/tubal ligation. Has had colectomy because of diverticulosis before. Denies smoking and alcohol abuse. Creatinine: 1.04 - 1.34 - 0.95 - 1.06 - 1.05 Potassium: 4.0 - 4.4 - 4.1 - 4.0 - 4.1 Troponin (high sensitive): 3 - 3 - <3 AST/ALT: 2063/1220 - 528/758 - 208/514 - 96/371 Total bilirubin: 1.2 - 1.2 TSH: 7.57 D-dimer: 0.65 Chest x-ray revealed: IMPRESSION: 1. No acute disease. Abdominal ultrasound revealed: IMPRESSION: 1. Enlarged fatty liver. 2. No biliary dilatation. Gallbladder has been removed CT of head revealed: IMPRESSION: No acute intracranial abnormality. CTA of lungs reported: IMPRESSION: 1. No evidence of acute pulmonary emboli. Telemetry reveals sinus rhythm Echocardiogram reported: Left ventricle: Left ventricle was normal sized with normal systolic function. LVEF was 66%. There was no gross wall motion abnormality. Right ventricle was normal sized with normal systolic function. Both atria were normal sized. Aortic valve is trileaflet. There was no aortic insufficiency/stenosis. There was trivial mitral/tricuspid regurgitation. There was no pulmonary valve insufficiency. Right ventricular systolic pressure was assessed at 28 mm Hg (normal). There was no pericardial effusion. Patient is a 59-year-old female who presented with palpitation and atypical chest discomfort. Reportedly patient's blood pressure was above 200 at home. Serial high sensitive troponin has been negative. Echocardiogram was done revealing. Acute coronary syndrome is not considered at this point. IL is ruled out. Patient was found to have significantly elevated liver enzymes. Is seen / evaluated by GI Hypertensive urgency/emergency Palpitations Old history of CVA Abnormal liver enzymes Diverticulosis, history of Cardiac suggestions for management: Manage on telemetry Follow up electrolytes and kidney function test and Correct abnormalities Follow up vital signs and treat hypertension GI follow up Stress test/long-term monitor can be arranged as outpatient Further evaluation and management depends on the above and clinical course A total of 55 minutes was spent reviewing the patient record, examining the patient, making a diagnostic and therapeutic plan, discussing this plan with medical personnel, following up on diagnostic studies and following the patient for clinical stability excluding any and all procedures. At least 50% of this time was spent in direct, [id number] contact. Thank you for allowing me to participate in this patient's care. Further recommendations will depend on patient's clinical course. Please do not hesitate to contact me if you have any questions or concerns. This medical document was created using electronic medical record system with [employer] computerized dictation system. Although this document has been carefully reviewed, there may still be some phonetic and typographical errors. These areas are purely typographical due to the imperfection of the software programs, and do not reflect any compromise in the patient's medical care. Plan discussed with: Patient, Other (nurse) LIZBETH AVELAR MD Jul 28, 2024 07:17
[2024-07-28 07:27] LABS: Erythrocyte Sedimentation Rate 7 mm/hr (0-20)
[2024-07-28] MEDS ORDERED: NORT25CA PO (11:20)
[2024-07-28] MEDS ORDERED: ZOFR4T PO (11:20)
--- NOTE | 2024-07-28 11:23 | DVHDS2 ---
Discharge Summary Date of Admission Jul 24, 2024 at 10:35 Date of Discharge: Jul 28, 2024 Labs/Diagnostic Data: Laboratory Results Test 07/28/24 05:27 07/27/24 05:04 07/26/24 05:30 07/25/24 05:26 Erythrocyte Sedimentation Rate 7 mm/hr (0-20) C-Reactive Protein High Sensitivity 0.86 mg/dL (<1.0) D-Dimer, Quantitative 0.65 mg/L FEU (0.0-0.49) Sodium Level 138 mmol/L (136-145) Potassium Level 4.1 mmol/L (3.5-5.1) Chloride Level 103 mmol/L (98-107) Carbon Dioxide Level 28 mmol/L (20-31) Anion Gap 7 (5-15) Blood Urea Nitrogen 19 mg/dL (9-23) Creatinine 1.05 mg/dL (0.550-1.02) Glomerular Filtration Rate Calc 61 mL/min (>90) BUN/Creatinine Ratio 18.1 (10.0-20.0) Serum Glucose 107 mg/dL (74-106) Calcium Level 9.9 mg/dL (8.7-10.4) Total Bilirubin 0.8 mg/dL (0.2-1.0) Aspartate Amino Transferase (AST) 96 U/L (13-40) Alanine Aminotransferase (ALT) 371 U/L (7-40) Alkaline Phosphatase 96 U/L (46-116) Total Protein 6.5 g/dL (5.7-8.2) Albumin 4.3 g/dL (3.2-4.8) Magnesium Level 2.2 mg/dL (1.6-2.6) Ferritin 48.5 ng/mL (10-291) Triglycerides Level 160 mg/dL (< 150) Cholesterol Level 161 mg/dL (< 200) LDL Cholesterol 89 mg/dL (< 100) HDL Cholesterol 45 mg/dL (40-59) Lipase 40 U/L (12-53) Thyroid Stimulating Hormone (TSH) 7.57 uIU/mL (0.55-4.78) White Blood Count 3.6 10^3/uL (4.4-10.8) Red Blood Count 4.84 10^6/uL (4.0-5.20) Hemoglobin 13.7 g/dL (12.2-16.2) Hematocrit 41.7 % (36.0-46.0) Mean Corpuscular Volume 86.1 fL (80.0-100.0) Mean Corpuscular Hemoglobin 28.4 pg (28.0-32.0) Mean Corpuscular Hemoglobin Concent 33.0 g/dL (32.0-36.0) Red Cell Distribution Width 14.0 % (11.8-14.3) Platelet Count 181 10^3/uL (140-450) Mean Platelet Volume 7.1 fL (6.9-10.8) Neutrophils (%) (Auto) 45.2 % (37.0-80.0) Lymphocytes (%) (Auto) 38.4 % (10.0-50.0) Monocytes (%) (Auto) 7.3 % (0.0-12.0) Eosinophils (%) (Auto) 7.9 % (0.0-7.0) Basophils (%) (Auto) 1.2 % (0.0-2.0) Neutrophils # (Auto) 1.6 10 ^3/uL (1.6-8.6) Lymphocytes # (Auto) 1.4 10 ^3/uL (0.4-5.4) Monocytes # (Auto) 0.3 10 ^3/uL (0-1.3) Eosinophils # (Auto) 0.3 10 ^3/uL (0-0.8) Basophils # (Auto) 0 10 ^3/uL (0-0.2) Nucleated Red Blood Cells 0.2 % Test 07/24/24 06:06 Troponin I High Sensitivity < 3 ng/L (</=34) Hepatitis B Surface Antigen Negative (Negative) Hepatitis C Antibody Negative (Negative) Other Laboratory Tests 07/27/24 05:04 07/25/24 05:26 Brief Hx & Hospital Course: Final diagnoses: Chest pain Headache Hypertensive urgency Uncontrolled hypertension Old CVA History of traumatic brain injury Hypertension Transaminitis Fatty liver History of left kidney mass per patient 59-year-old female who was admitted for chest pain and headache and uncontrolled hypertension Her liver enzymes were also elevated and then started coming down spontaneously, there was no reason for it except possibly from hypotension however when she came here she was hypertensive, her blood pressure improved gradually but her headache did not get better and therefore we did a CT scan of the head MRI of the brain which were all negative no etiology recommended a CT angiography of the lungs which showed no pulmonary embolism Carotid Doppler was negative Regarding her elevated liver function tests, she had an ultrasound of the abdomen which showed enlarged fatty liver, she had a cholecystectomy before No biliary dilatation Her headache was evaluated by Neurology also who recommended to add nortriptyline Her blood pressure has been stable on lisinopril and Coreg The patient can be discharged home Discontinue hydralazine and use it only p.r.n. Follow up with Cardiology as soon as possible for outpatient stress test Take nortriptyline 25 mg at bedtime Resume other home medications Condition at Discharge: Stable Final Diagnosis/Problems List Chest pain, atypical, most likely musculoskeletal pain Headache, nonspecific Hypertensive urgency better Uncontrolled hypertension , improved Old CVA History of traumatic brain injury Hypertension Transaminitis, resolved Fatty liver History of left kidney mass per patient Discharge Disposition: Home SNF Discharge Will this Physician continue t: No Discharge Statement: "Patient was advised to return to the ER or call 911 if any headaches, dizziness, shortness of breath, chest pain, abdominal pain, bleeding, fevers, or worsening of medical condition. Patient was counseled about treatment plan, medications, possible side effects, patientverbalized understanding. All questions were answered to the best of my ability. This discharge took greater then 30 minutes in planning, reviewing documentation, counseling the patient, and discussing with other team members." ASSESSMENT ASSESSMENT Assessment Date of Service: Jul 28, 2024 Billing Provider: CHRISTIANO BONDS MD Common Visit Codes: 87355-MEC/OBS DISCH DAY >30min CHRISTIANO BONDS MD Jul 28, 2024 11:23
--- NOTE | 2024-07-28 17:29 | DVHPN2 ---
Progress Note Date Seen: Jul 28, 2024 Resident Creating Document: UNRULY MACK RESIDENT Medical Necessity Reason Pt with a Central, PICC or Fol: No Subjective Review of Systems No new complaints. Patient is planned for discharge today. Objective vital signs Vital Sign Date Time Temp Pulse Resp B/P (MAP) Pulse Ox O2 Delivery O2 Flow Rate FiO2 07/28/24 13:00 97.9 79 17 105/80 (88) 92 97.9 07/28/24 08:25 Room Air* 0 21 Total Intake and Output 07/27/24 07/27/24 07/28/24 15:00 23:00 07:00 Intake Total 1200 ml 800 ml Balance 1200 ml 800 ml Examination General Appearance: Cooperative. Well developed. Well nourished. NAD Head Exam: Normal inspection Neck Exam: Normal inspection. Non-tender. Normal alignment Pulmonary/Respiratory: Chest non-tender. Clear bilateral breath sounds Cardiovascular/Chest: Regular rate and rhythm. No murmurs. No JVD. Peripheral Pulses: 2+ Radial (R). 2+ Radial (L). 2+ Pedal (R). 2+ Pedal (L) Abdominal Exam: Normal bowel sounds. Soft. Nontender. No hepatospenomegaly. No masses Ankle Exam: Negative ankle edema Lower extremities: Negative lower extremity edema Neuro/Mental Status: A&O x4. Coherent Thoughts/Psych: Normal thought pattern. Appropriate mood and affect. Good judgement and insight Appearance: In no acute distress Skin Exam: Normal inspection. Normal color. Warm. Dry laboratory and microbiology Laboratory Tests 07/27/24 05:04 07/25/24 05:26 Test 07/27/24 05:04 Range/Units Serum Glucose 107 H 74-106 mg/dL Problem List/Assessment/Plan Problem List/Assessment/Plan Elevated LFTs possible secondary to hypoxemia/hypotension/or cardiac in origin Fatty liver Hypertensive urgency Plan/recommendation Dr. Jaimes Follow up in GI outpatient setting. -liver enzymes his trending down, continue to monitor. Likely elevated liver function secondary to cardiac in origin versus hypotension. -hepatitis negative -low-level ferritin -avoid hepatotoxic medication -recommend outpatient GI follow-up for further evaluation. -no acute GI intervention needed at this point. -we will continue to monitor patient. Plan discussed with: Patient, Other (RN) UNRULY MACK RESIDENT Jul 28, 2024 17:29
[2024-07-28] MEDS ORDERED: NORTRIPTYLINE HCL 10 MG CAP PO SCH (22:00)
== END 2024-07-28 17:00 | disposition home or self-care (01) | DRG 199 ==
LOC: ER 17:40 → EDBD 17:40 → TELE 07-24 10:35 → TELE-WESTW 07-24 10:38 → OVERFLOW 07-25 15:45 → WEST WING 07-25 15:59 → OVERFLOW 07-26 13:21 → TELE-WESTW 07-26 13:36
PROVIDERS: ADMIT Nurse Practitioner Family; ATTEND Internal Medicine Geriatric Medicine
DX: I16.0 Hypertensive urgency (principal); N17.0 Acute kidney failure with tubular necrosis; E44.1 Mild protein-calorie malnutrition; K76.0 Fatty (change of) liver, not elsewhere classified; R07.89 Other chest pain; I10 Essential (primary) hypertension; G47.10 Hypersomnia, unspecified; K57.30 Diverticulosis of large intestine without perforation or abscess without bleeding; R51.9 Headache, unspecified; E66.9 Obesity, unspecified; Z79.899 Other long term (current) drug therapy; Z88.0 Allergy status to penicillin; Z86.73 Personal history of transient ischemic attack (TIA), and cerebral infarction without residual deficits; Z82.49 Family history of ischemic heart disease and other diseases of the circulatory system; Z82.0 Family history of epilepsy and other diseases of the nervous system; Z87.442 Personal history of urinary calculi; Z90.49 Acquired absence of other specified parts of digestive tract; Z68.31 Body mass index [BMI] 31.0-31.9, adult
CPT/HCPCS: 36415; 70450; 70551; 71045; 71275; 76700; 80048; 80053; 80061; 82728; 83690; 83735; 84443; 84484; 85025; 85379; 85652; 86141; 86803; 87340; 93005; 93306; 93886; 96374; 96375; 99291; G0378; J2405